=== PATIENT | female | born 1970 | race African-American/Black ===

== ENCOUNTER 2016-12-07 19:31 | Inpatient (IN) | payer OTHER ==
[2016-12-07 20:22] VITALS: BMI 22.6
--- NOTE | 2016-12-07 21:18 | HP ---
CIWA Score - CIWA Score Nausea/Vomitin-No Nausea/No Vomiting Muscle Tremors: 4-Moderate,w/Arms Extend Anxiety: 4-Mod. Anxious/Guarded Agitation: 3 Paroxysmal Sweats: No Perspiration Orientation: 0-Oriented Tacttile Disturbances: 0-None Auditory Disturbances: 0-None Visual Disturbances: 0-None Headache: 3-Moderate CIWA-Ar Total Score: 14 Admission [facility] - HPI Chief Complaint: Alcohol withdrawal symptoms Allergies/Adverse Reactions: Allergies Allergy/AdvReac Type Severity Reaction Status Date / Time No Known Allergies Allergy Verified 12/07/16 21:14 History of Present Illness: 46 years old female with history of alcohol, cocaine and marijuana dependence is admitted for detox. Patient has been in previous detox and reports 2 years of sobriety. Patient has medical history of diabetes, Hep C, nicotine dependence and Bipolar disorder. Reports history of suicide attempt at 16 years old and denies any suicidal ideation at this time Exam Limitations: No Limitations - Ebola screening Have you traveled outside of the country in the last 21 days: No Have you had contact with anyone from an Ebola affected area: No Have you been sick,other than usual withdrawal symptoms: No Do you have a fever: No - Review of Systems Constitutional: Chills, Loss of Appetite, Malaise, Night Sweats, Changes in sleep, Weakness EENT: reports: No Symptoms Reported Respiratory: reports: No Symptoms reported Cardiac: reports: No Symptoms Reported GI: reports: Poor Appetite, Poor Fluid Intake, Other (Dry mucous membrane) : reports: No Symptoms Reported Musculoskeletal: reports: Muscle Pain, Muscle Weakness Integumentary: reports: Dryness, Flushing, Pallor, Other (dry mucous membrane) Neuro: reports: Tingling, Tremors Endocrine: reports: Flushing, Increased Thirst, Increased Urine, Unexplained Weight Loss Hematology: reports: No Symptoms Reported Psychiatric: reports: Orientated x3, Anxious Other Systems: Reviewed and Negative Patient History - Patient Medical History Hx Anemia: No Hx Asthma: No Hx Chronic Obstructive Pulmonary Disease (COPD): No Hx Cancer: No Hx Cardiac Disorders: No Hx Congestive Heart Failure: No Hx Hypertension: No Hx Hypercholesterolemia: No HX Cerebrovascular Accident: No Hx Seizures: No Hx Diabetes: Yes (Lantus and metformin) Hx Gastrointestinal Disorders: No Hx Liver Disease: Yes (Hep C) Hx Genitourinary Disorders: No Hx Sexually Transmitted Disorders: No Hx Renal Disease (ESRD): No Hx Thyroid Disease: No Hx Human Immunodeficiency Virus (HIV): No (Negative 2016) Hx Hepatitis C: Yes Hx Depression: Yes Hx Suicide Attempt: Yes (at 16 years) Hx Bipolar Disorder: Yes Hx Schizophrenia: No - Patient Surgical History Past Surgical History: No - PPD History Previous Implant?: Yes ([facility]) Documented Results: Negative w/o proof PPD to be Administered?: Yes - Reproductive History Patient is a Female of Child Bearing Age (11 -55 yrs old): Yes LMP comment: LMP 2014, date unknown Patient : No - Smoking Cessation Smoking history: Current every day smoker Have you smoked in the past 12 months: Yes Aproximately how many cigarettes per day: 10 Hx Chewing Tobacco Use: No Initiated information on smoking cessation: Yes 'Breaking Loose' booklet given: 12/07/16 - Substance & Tx. History Hx Alcohol Use: Yes (Beer) Hx Substance Use: Yes (cocaine, marijuana) Substance Use Type: Alcohol, Cocaine, Marijuana Hx Substance Use Treatment: Yes ([facility] September 2016) - Substances Abused Alcohol Route: Oral Frequency: Daily Amount used: half pack of beer Age of first use: 13 Date of Last Use: 12/07/16 Cocaine Route: Smoking Frequency: 3-6 times per week Amount used: $20 Age of first use: 16 Date of Last Use: 12/06/16 Marijuana/Hashish Route: Smoking Frequency: 1-2 times per week Amount used: 1 joint Age of first use: 16 Date of Last Use: 12/05/16 Family Disease History - Family Disease History Family History: Denies Admission Physical Exam [facility] - Vital Signs Vital Signs: Vital Signs - 24 hr 12/07/16 20:17 Temperature 98.0 F Pulse Rate 84 Respiratory 18 Rate Blood Pressure 130/84 - Physical General Appearance: Yes: Within Normal Limits HEENTM: Yes: EOMI, Normal Voice, COOKIE Respiratory: Yes: Lungs Clear, Normal Breath Sounds, No Respiratory Distress Neck: Yes: Supple Breast: Yes: Breast Exam Deferred Cardiology: Yes: Regular Rhythm, Regular Rate, S1, S2 Abdominal: Yes: Normal Bowel Sounds, Soft Genitourinary: Yes: Within Normal Limits Back: Yes: Within Normal Limits Musculoskeletal: Yes: Within Normal Limits Extremities: Yes: Normal Inspection Neurological: Yes: Fully Oriented, Alert, Normal Response Integumentary: Yes: Dry Lymphatic: Yes: Within Normal Limits - Diagnostic (1) Alcohol dependence with uncomplicated withdrawal Current Visit: Yes Status: Acute (2) Cocaine dependence, uncomplicated Current Visit: Yes Status: Acute (3) Cannabis dependence, uncomplicated Current Visit: Yes Status: Acute (4) Diabetes Current Visit: Yes Status: Chronic (5) Hepatitis C Current Visit: Yes Status: Chronic Cleared for Admission [facility] - Detox or Rehab [facility] Level of Care: Medically Managed Detox Regimen/Protocol: Librium [facility] Breath Alcohol Content Breath Alcohol Content: 0.062 Urine Pregancy Test - Result Urine Test Results: Negative- NO Line Present Urine Drug Screen - Results Drug Screen Negative: No Urine Drug Screen Results: THC-Marijuana, SERA-Cocaine
[2016-12-07] MEDS ORDERED: ACETAMINOPHEN 325 MG TABLET (FP) PO PRN (21:41)
[2016-12-07] MEDS ORDERED: MENTHOL/PHENOL 1 EACH UD MM PRN (21:41)
[2016-12-07] MEDS ORDERED: chlordiazePOXIDE HCL 25 MG CAPSULE PO PRN (21:41)
[2016-12-07] MEDS ORDERED: hydrOXYzine PAMOATE 50 MG CAPSULE (FP) PO PRN (21:41)
[2016-12-07] MEDS ORDERED: LOPERAMIDE HCL 2 MG CAPSULE PO PRN (21:41)
[2016-12-07] MEDS ORDERED: P-EPHED 60MG/TRIPROLIDI 2.5MG TABLET PO PRN (21:41)
[2016-12-07] MEDS ORDERED: NICOTINE POLACRILEX 2 MG GUM BC PRN (21:41)
[2016-12-07] MEDS ORDERED: IBUPROFEN 400 MG TABLET (FP) PO PRN (21:41)
[2016-12-07] MEDS ORDERED: MAG HYDROX/AL HYDROX/SIMETH 30 ML UNIT-DOSE CUP PO PRN (21:41)
[2016-12-07] MEDS ORDERED: diphenhydrAMINE HCL 50 MG CAPSULE PO PRN (21:41)
[2016-12-07] MEDS ORDERED: MAGNESIUM HYDROX 2400MG/30ML ORAL SUSPENSION 30 ML CUP PO PRN (21:41)
[2016-12-07] MEDS ORDERED: MAGNESIUM CITRATE 300 ML BOTTLE PO PRN (21:41)
[2016-12-07] MEDS ORDERED: guaiFENesin/D-METHORPHAN HB 10 ML UNIT-DOSE CUPS PO PRN (21:41)
[2016-12-07] MEDS: chlordiazePOXIDE HCL 25 MG CAPSULE PO SCH (22:54)
[2016-12-07] MEDS: INSULIN DETEMIR 100 UNITS/ML MDV SQ SCH (22:55)
[2016-12-07] MEDS: THIAMINE HCL 100 MG TABLET (FP) PO SCH (23:00)
[2016-12-08] MEDS: chlordiazePOXIDE HCL 25 MG CAPSULE PO SCH ×4 (05:14→22:09)
[2016-12-08] MEDS: metFORMIN HCL 500 MG TABLET (FP) PO SCH ×3 (08:04→17:19)
--- NOTE | 2016-12-08 08:58 | PN ---
S CIWA - CIWA Score Nausea/Vomitin Muscle Tremors: 3 Anxiety: 3 Agitation: 3 Paroxysmal Sweats: 1-Minimal Palms Moist Orientation: 0-Oriented Tacttile Disturbances: 1-Very Mild Itch/Numbness Auditory Disturbances: 1-Very Mild Visual Disturbances: 0-None Headache: 2-Mild CIWA-Ar Total Score: 17 BHS Progress Note (SOAP) Subjective: ALERT,IRRITABLE,ANXIOUS,INTERRUPTED SLEEP,TREMOR Objective: 12/08/16 09:05 Vital Signs Temperature 97.9 F 12/08/16 06:00 Pulse Rate 71 12/08/16 06:00 Respiratory Rate 16 12/08/16 06:00 Blood Pressure 135/58 12/08/16 06:00 O2 Sat by Pulse Oximetry (%) EKG NSR,INVERTED T IN 1 AND AVL,VIV2 NO CHEST PAIN,NO SOB,NO DIZZINESS Laboratory Last Values POC Glucometer 272 UNITS (()) 12/08/16 05:13 12/08/16 09:07 LABS PENDING Assessment: 12/08/16 09:07 WITHDRAWAL SYMPTOM Plan: CONTINUE DETOX
[2016-12-08 10:01] LABS: MCH 29.3 pg (25.7-33.7); MCHC 32.6 g/dl (32.0-36.0); MEAN PLT VOLUME 8.7 fl (7.5-11.1); PLATELET COUNT 426 K/MM3 (134-434); RDW 13.9 % (11.6-15.6)
[2016-12-08 10:07] LABS: ALBUMIN 2.8 g/dl (3.4-5.0); ANION GAP 8 (8-16); CALCIUM 9.1 mg/dL (8.5-10.1); CO2 28 mmol/L (21-32); GLUCOSE,RANDOM 230 mg/dL (74-106)
[2016-12-08 10:11] LABS: ALK PHOS 102 U/L (45-117); BILIRUBIN,TOTAL 0.7 mg/dL (0.2-1.0); CREATININE 0.7 mg/dL (0.55-1.02); SGOT/AST 125 U/L (15-37); SGPT/ALT 97 U/L (12-78); TOT PROT 6.3 g/dl (6.4-8.2)
[2016-12-08] MEDS: PRENATAL VITAMINS W/ FOLIC ACID TABLET (FP) PO SCH (11:00)
--- NOTE | 2016-12-08 15:39 | CONSULT ---
[facility] Psychiatric Consult - Data Date of interview: 12/08/16 Admission source: [facility] Identifying data: First admission to [facility] for this 46 y/o AA female seeking detox treatment on for alcohol,cocaine (crack) and cannabis dependence.Patient is without children,domiciled,unemployed and supported by . Substance Abuse History: Patient admits to a long history of abuse of cannabis, alcohol and crack/cocaine. Smoking history: Current every day smoker. Have you smoked in the past 12 months: Yes. Aproximately how many cigarettes per day : 10. Hx Chewing Tobacco Use: No. Initiated information on smoking cessation: Yes. 'Breaking Loose' booklet given: 12/07/16. - Substance & Tx. History. Hx Alcohol Use: Yes (Beer). Hx Substance Use: Yes (cocaine, marijuana). Substance Use Type: Alcohol, Cocaine, Marijuana. Hx Substance Use Treatment: Yes ([facility] September 2016). - Substances Abused. Alcohol. Route: Oral. Frequency: Daily. Amount used: half pack of beer. Age of first use: 13. Date of Last Use: 12/07/16. Cocaine. Route: Smoking. Frequency: 3-6 times per week. Amount used: $20. Age of first use: 16. Date of Last Use: 12/06/16. * * Marijuana/Hashish. Route: Smoking. Frequency: 1-2 times per week. Amount used: 1 joint. Age of first use: 16. Date of Last Use: 12/05/16 Medical History: Hepatitis C and diabetes mellitus. Psychiatric History: No reported history of psychiatric hospitalizations.Patient informs that she gets psychiatric OPD care at the [facility] mental health clinic.Diagnosed with Bipolar Disorder.Prescribed seroquel 100 mg/hs + trazodone 50 mg/hs.Remote history of suicide attempts (age 16) via overdose with medications. Physical/Sexual Abuse/Trauma History: Patient denies. Additional Comment: Urine Drug Screen Results: THC-Marijuana, SERA-Cocaine.Noted. Mental Status Exam - Mental Status Exam Alert and Oriented to: Time, Place, Person Cognitive Function: Good Patient Appearance: Well Groomed (small stature and medium habitus) Mood: Nervous, Withdrawn Affect: Mood Congruent Patient Behavior: Appropriate, Cooperative Speech Pattern: Clear Voice Loudness: Normal Thought Process: Goal Oriented Thought Disorder: Not Present Hallucinations: Denies Suicidal Ideation: Denies Homicidal Ideation: Denies Insight/Judgement: Poor Sleep: Fair Appetite: Good Muscle strength/Tone: Normal Gait/Station: Normal Psychiatric Findings - Problem List ([place] 1, 2,3) (1) Alcohol dependence with uncomplicated withdrawal Current Visit: Yes Status: Acute (2) Cannabis dependence, uncomplicated Current Visit: Yes Status: Acute (3) Cocaine dependence, uncomplicated Current Visit: Yes Status: Acute (4) Nicotine dependence Current Visit: Yes Status: Acute (5) Bipolar disorder Current Visit: Yes Status: Chronic Qualifiers: Active/Remission status: currently active Comment: Self-report. (6) Substance induced mood disorder Current Visit: Yes Status: Acute (7) Diabetes Current Visit: Yes Status: Chronic (8) Hepatitis C Current Visit: Yes Status: Chronic - Initial Treatment Plan Initial Treatment Plan: Psychoeducation.Detoxification.Medications : seroquel 100 mg po hs.Side effects/benefits are discussed with the patient.She agrees with [facility]Pharmacy claims of 11/25/16 at [place] [facility] # [phone] : refill for seroquel 200 mg/hs (30-day supply).NO scripts required at discharge (medication still available at home).Observation.No evidence of recent script for trazodone.
[2016-12-08] MEDS: INSULIN SLIDING SCALE (NOVOLOG) 1 VIAL SQ SCH (22:03)
[2016-12-08] MEDS ORDERED: INSULIN (NOVOLOG) ASPART 100 UNITS/ML 10ML VIAL ONE (22:08)
[2016-12-08] MEDS: QUEtiapine FUMARATE 100 MG TABLET (FP) PO SCH (22:09)
[2016-12-08] MEDS: INSULIN DETEMIR 100 UNITS/ML MDV SQ SCH (22:09)
[2016-12-08] MEDS: THIAMINE HCL 100 MG TABLET (FP) PO SCH (22:10)
[2016-12-09] MEDS: chlordiazePOXIDE HCL 25 MG CAPSULE PO SCH ×3 (06:23→16:59)
[2016-12-09] MEDS: metFORMIN HCL 500 MG TABLET (FP) PO SCH ×2 (06:24→16:59)
[2016-12-09] MEDS ORDERED: INSULIN (NOVOLOG) ASPART 100 UNITS/ML 10ML VIAL ONE ×2 (06:27→11:34)
[2016-12-09] MEDS: INSULIN SLIDING SCALE (NOVOLOG) 1 VIAL SQ SCH ×4 (07:42→23:06)
--- NOTE | 2016-12-09 09:55 | PN ---
S CIWA - CIWA Score Nausea/Vomitin Muscle Tremors: 4-Moderate,w/Arms Extend Anxiety: 4-Mod. Anxious/Guarded Agitation: 4-Moderately Restless Paroxysmal Sweats: 1-Minimal Palms Moist Orientation: 0-Oriented Tacttile Disturbances: 1-Very Mild Itch/Numbness Auditory Disturbances: 0-None Visual Disturbances: 0-None Headache: 1-Very Mild CIWA-Ar Total Score: 18 BHS Progress Note (SOAP) Subjective: nausea, sweats, interrupted sleep, anxiety, tremors Objective: 12/09/16 09:54 Vital Signs - 8 hr 12/09/16 12/09/16 12/09/16 03:30 06:00 09:07 Temperature 96.6 F L 97.6 F Pulse Rate 69 78 Respiratory 18 18 18 Rate Blood Pressure 129/71 136/63 Laboratory Tests 12/08/16 12/08/16 12/08/16 05:13 07:00 07:00 WBC 7.0 RBC 4.38 Hgb 12.8 Hct 39.4 MCV 90.0 MCH 29.3 MCHC 32.6 RDW 13.9 Plt Count 426 MPV 8.7 Sodium 140 Potassium 4.3 Chloride 104 Carbon Dioxide 28 Anion Gap 8 BUN 11 Creatinine 0.7 Creat Clearance w eGFR > 60 POC Glucometer 272 Random Glucose 230 H Calcium 9.1 Total Bilirubin 0.7 AST 125 H ALT 97 H Alkaline Phosphatase 102 Total Protein 6.3 L Albumin 2.8 L RPR Titer 12/08/16 12/08/16 12/08/16 07:00 16:25 22:02 WBC RBC Hgb Hct MCV MCH MCHC RDW Plt Count MPV Sodium Potassium Chloride Carbon Dioxide Anion Gap BUN Creatinine Creat Clearance w eGFR POC Glucometer 333 294 Random Glucose Calcium Total Bilirubin AST ALT Alkaline Phosphatase Total Protein Albumin RPR Titer Nonreactive 12/09/16 06:12 WBC RBC Hgb Hct MCV MCH MCHC RDW Plt Count MPV Sodium Potassium Chloride Carbon Dioxide Anion Gap BUN Creatinine Creat Clearance w eGFR POC Glucometer 261 Random Glucose Calcium Total Bilirubin AST ALT Alkaline Phosphatase Total Protein Albumin RPR Titer Assessment: 12/09/16 09:54 hypoalbuminemia/malnutrition 2/2 substance use liver disease, withdrawal sx Plan: cont detox, fluids, ensure plus
[2016-12-09] MEDS: PRENATAL VITAMINS W/ FOLIC ACID TABLET (FP) PO SCH (10:40)
--- NOTE | 2016-12-09 12:49 | EKG ---
Test Reason : Blood Pressure : / mmHG Vent. Rate : 077 BPM Atrial Rate : 077 BPM P-R Int : 148 ms QRS Dur : 082 ms QT Int : 414 ms P-R-T Axes : 063 087 077 degrees QTc Int : 468 ms NORMAL SINUS RHYTHM POSSIBLE ANTERIOR INFARCT , AGE UNDETERMINED ABNORMAL ECG NO PREVIOUS ECGS AVAILABLE Confirmed by ALFREDO PINEDO MD ([id number]) on 12/09/2016 12:49:17 PM Referred By: Confirmed By:ALFREDO PINEDO MD
[2016-12-09 16:05] LABS: URINE APPEARANCE SLCLOUDY; URINE BILIRUBIN NEGATIVE (NEGATIVE); URINE BLOOD NEGATIVE (NEGATIVE); URINE COLOR YELLOW; URINE GLUCOSE (UA) NEGATIVE (NEGATIVE); URINE KETONE NEGATIVE (NEGATIVE); URINE NITRITE NEGATIVE (NEGATIVE); URINE PROTEIN NEGATIVE (NEGATIVE); URINE UROBILINOGEN NEGATIVE mg/dL (0.2-1.0)
[2016-12-09 18:08] LABS: URINE LEUK ESTERASE Negative (NEGATIVE)
[2016-12-09] MEDS: chlordiazePOXIDE 5 MG CAPSULE PO SCH (22:44)
[2016-12-09] MEDS: QUEtiapine FUMARATE 100 MG TABLET (FP) PO SCH (22:44)
[2016-12-09] MEDS: THIAMINE HCL 100 MG TABLET (FP) PO SCH (22:44)
[2016-12-09] MEDS: INSULIN DETEMIR 100 UNITS/ML MDV SQ SCH (23:05)
[2016-12-10] MEDS: chlordiazePOXIDE 5 MG CAPSULE PO SCH ×3 (06:22→11:16)
[2016-12-10 06:33] VITALS: BP 126/68; PULSE 66; TEMP 96.1
[2016-12-10] MEDS: metFORMIN HCL 500 MG TABLET (FP) PO SCH (06:34)
[2016-12-10] MEDS ORDERED: INSULIN (NOVOLOG) ASPART 100 UNITS/ML 10ML VIAL ONE (08:02)
[2016-12-10] MEDS: INSULIN SLIDING SCALE (NOVOLOG) 1 VIAL SQ SCH ×2 (08:18→11:40)
--- NOTE | 2016-12-10 09:40 | PN ---
S Progress Note (SOAP) Subjective: alert,irritable,anxious,interrupted sleep, Objective: 12/10/16 09:38 Vital Signs Temperature 96.1 F L 12/10/16 06:32 Pulse Rate 66 12/10/16 06:32 Respiratory Rate 16 12/10/16 06:32 Blood Pressure 126/68 12/10/16 06:32 O2 Sat by Pulse Oximetry (%) 12/10/16 09:39 Laboratory Last Values WBC 7.0 K/mm3 (4.0-10.0) 12/08/16 07:00 RBC 4.38 M/mm3 (3.60-5.2) 12/08/16 07:00 Hgb 12.8 GM/dL (10.7-15.3) 12/08/16 07:00 Hct 39.4 % (32.4-45.2) 12/08/16 07:00 MCV 90.0 fl (80-96) 12/08/16 07:00 MCH 29.3 pg (25.7-33.7) 12/08/16 07:00 MCHC 32.6 g/dl (32.0-36.0) 12/08/16 07:00 RDW 13.9 % (11.6-15.6) 12/08/16 07:00 Plt Count 426 K/MM3 (134-434) 12/08/16 07:00 MPV 8.7 fl (7.5-11.1) 12/08/16 07:00 Sodium 140 mmol/L (136-145) 12/08/16 07:00 Potassium 4.3 mmol/L (3.5-5.1) 12/08/16 07:00 Chloride 104 mmol/L (98-107) 12/08/16 07:00 Carbon Dioxide 28 mmol/L (21-32) 12/08/16 07:00 Anion Gap 8 (8-16) 12/08/16 07:00 BUN 11 mg/dL (7-18) 12/08/16 07:00 Creatinine 0.7 mg/dL (0.55-1.02) 12/08/16 07:00 Creat Clearance w eGFR > 60 (>60) 12/08/16 07:00 POC Glucometer 326 UNITS (()) 12/10/16 06:30 Random Glucose 230 mg/dL (74-106) H 12/08/16 07:00 Calcium 9.1 mg/dL (8.5-10.1) 12/08/16 07:00 Total Bilirubin 0.7 mg/dL (0.2-1.0) 12/08/16 07:00 AST 125 U/L (15-37) H 12/08/16 07:00 ALT 97 U/L (12-78) H 12/08/16 07:00 Alkaline Phosphatase 102 U/L (45-117) 12/08/16 07:00 Total Protein 6.3 g/dl (6.4-8.2) L 12/08/16 07:00 Albumin 2.8 g/dl (3.4-5.0) L 12/08/16 07:00 Urine Color Yellow 12/09/16 12:30 Urine Appearance Slcloudy 12/09/16 12:30 Urine pH 7.0 (5.0-8.0) 12/09/16 12:30 Ur Specific [place] 1.015 (1.001-1.035) 12/09/16 12:30 Urine Protein Negative (NEGATIVE) 12/09/16 12:30 Urine Glucose (UA) Negative (NEGATIVE) 12/09/16 12:30 Urine Ketones Negative (NEGATIVE) 12/09/16 12:30 Urine Blood Negative (NEGATIVE) 12/09/16 12:30 Urine Nitrite Negative (NEGATIVE) 12/09/16 12:30 Urine Bilirubin Negative (NEGATIVE) 12/09/16 12:30 Urine Urobilinogen Negative mg/dL (0.2-1.0) 12/09/16 12:30 Ur Leukocyte Esterase Negative (NEGATIVE) 12/09/16 12:30 RPR Titer Nonreactive (NONREACTIVE) 12/08/16 07:00 Assessment: 12/10/16 09:38 withdrawal symptom 12/10/16 09:39 Plan: continue detox,bgm monitoring,insulin coverage and metformin 1000 mg po bid
[2016-12-10] MEDS: PRENATAL VITAMINS W/ FOLIC ACID TABLET (FP) PO SCH (10:53)
--- NOTE | 2016-12-10 12:18 | PN ---
BHS Progress Note Note: ALERT,NO COMPLAINT,STABLE FOR DISCHARGE TO REHAB
--- NOTE | 2016-12-10 12:22 | DS ---
[facility] Detox Discharge Summary Admission Date: 12/07/16 Discharge Date: 12/10/16 - History Present History: Alcohol Dependence, Cannabis Dependence, Cocaine Dependence Additional Comments: FOLLOW UP WITH AFTER CARE PROGRAM [facility] APPOINTMENT Pertinent Past History: HYPERTENSION TYPE 2 DM - Physical Exam Results Vital Signs: Vital Signs Temperature 96.1 F L 12/10/16 06:32 Pulse Rate 66 12/10/16 06:32 Respiratory Rate 16 12/10/16 06:32 Blood Pressure 126/68 12/10/16 06:32 O2 Sat by Pulse Oximetry (%) Pertinent Admission Physical Exam Findings: WITHDRAWAL SYMPTOM - Treatment Hospital Course: Detox Protocol Followed, Detoxed Safely, Responded well, Discharged Condition Good, Rehab Referral Accepted Patient has Accepted a Rehab Referral to: [facility] - Medication Discharge Medications: Ambulatory Orders Insulin Glargine,Hum.rec.anlog [Lantus Solostar PEN (NF)] 24 units SQ HS Insulin Lispro [Humalog] 10 unit SQ DAILY 12/07/16 Metformin HCl [Glucophage -] 500 mg PO BID 12/07/16 - Diagnosis (1) Alcohol dependence with uncomplicated withdrawal Current Visit: Yes Status: Acute (2) Cannabis dependence, uncomplicated Current Visit: Yes Status: Acute (3) Cocaine dependence, uncomplicated Current Visit: Yes Status: Acute (4) Nicotine dependence Current Visit: Yes Status: Acute (5) Substance induced mood disorder Current Visit: Yes Status: Acute (6) Bipolar disorder Current Visit: Yes Status: Chronic Qualifiers: Active/Remission status: currently active (7) Diabetes Current Visit: Yes Status: Chronic (8) Hepatitis C Current Visit: Yes Status: Chronic - AMA Did Patient Leave Against Medical Advice: No
[2016-12-10] MEDS ORDERED: chlordiazePOXIDE HCL 10 MG CAPSULE PO SCH (23:00)
== END 2016-12-10 13:47 | disposition other institution (70) | DRG 774 ==
LOC: YASAS 19:31 → Y6N 22:22
PROVIDERS: ADMIT Internal Medicine; ATTEND Internal Medicine
PROC: HZ2ZZZZ Detoxification Services for Substance Abuse Treatment (ICD-10-PCS; principal; 2016-12-07)
DX: F10.230 Alcohol dependence with withdrawal, uncomplicated (principal); F14.20 Cocaine dependence, uncomplicated; F12.220 Cannabis dependence with intoxication, uncomplicated; F17.210 Nicotine dependence, cigarettes, uncomplicated; F19.24 Other psychoactive substance dependence with psychoactive substance-induced mood disorder; F31.9 Bipolar disorder, unspecified; B18.2 Chronic viral hepatitis C; E11.9 Type 2 diabetes mellitus without complications; Z79.4 Long term (current) use of insulin; Z79.84 Long term (current) use of oral hypoglycemic drugs; Z91.5 Personal history of self-harm
CPT/HCPCS: 36415; 80053; 81003; 85027; 86593; 93005; 93010

== ENCOUNTER 2016-12-10 14:27 | Inpatient (IN) | payer OTHER ==
[2016-12-10] MEDS ORDERED: MAGNESIUM HYDROX 2400MG/30ML ORAL SUSPENSION 30 ML CUP PO PRN (15:15)
[2016-12-10] MEDS ORDERED: ACETAMINOPHEN 325 MG TABLET (FP) PO PRN (15:15)
[2016-12-10] MEDS ORDERED: IBUPROFEN 400 MG TABLET (FP) PO PRN (15:15)
[2016-12-10] MEDS ORDERED: guaiFENesin/D-METHORPHAN HB 10 ML UNIT-DOSE CUPS PO PRN (15:15)
[2016-12-10] MEDS ORDERED: MAGNESIUM CITRATE 300 ML BOTTLE PO PRN (15:15)
[2016-12-10] MEDS ORDERED: MENTHOL/PHENOL 1 EACH UD MM PRN (15:15)
[2016-12-10] MEDS ORDERED: LOPERAMIDE HCL 2 MG CAPSULE PO PRN (15:15)
[2016-12-10] MEDS ORDERED: P-EPHED 60MG/TRIPROLIDI 2.5MG TABLET PO PRN (15:15)
[2016-12-10] MEDS ORDERED: MAG HYDROX/AL HYDROX/SIMETH 30 ML UNIT-DOSE CUP PO PRN (15:15)
[2016-12-10] MEDS: NICOTINE 21 MG/24 HOURS TOPICAL PATCH TD SCH (15:43)
[2016-12-10] MEDS: metFORMIN HCL 500 MG TABLET (FP) PO SCH (16:42)
--- NOTE | 2016-12-10 16:42 | HP ---
[facility] Rehab Assess/Revision - Admission History Admitted to Rehab from: [facility] [address] [place] Date of Admission to Rehab: 12/10/16 - Vital signs Vital Signs: Vital Signs Period Temp Pulse Resp BP Sys/Mata Pulse Ox Last 24 Hr 97 F 79 16 111/76 - Findings Detox History & Physical reviewed: Yes Concur with findings: Yes Comments/Additional Findings: TRANSFERRED FROM DETOX TO REHAB ADMISSION PER PROTOCOL
--- NOTE | 2016-12-10 16:43 | HP ---
Admission [facility] Allergies/Adverse Reactions: Allergies Allergy/AdvReac Type Severity Reaction Status Date / Time No Known Allergies Allergy Verified 12/07/16 21:14 - Ebola screening Have you traveled outside of the country in the last 21 days: No Have you had contact with anyone from an Ebola affected area: No Patient History - Patient Medical History Hx Anemia: No Hx Asthma: No Hx Chronic Obstructive Pulmonary Disease (COPD): No Hx Cancer: No Hx Cardiac Disorders: No Hx Congestive Heart Failure: No Hx Hypertension: No Hx Hypercholesterolemia: No HX Cerebrovascular Accident: No Hx Seizures: No Hx Diabetes: Yes Hx Gastrointestinal Disorders: No Hx Liver Disease: Yes (Hep C) Hx Genitourinary Disorders: No Hx Sexually Transmitted Disorders: No Hx Renal Disease (ESRD): No Hx Thyroid Disease: No Hx Human Immunodeficiency Virus (HIV): No (Negative 2017) Hx Hepatitis C: Yes Hx Depression: Yes Hx Suicide Attempt: No Hx Bipolar Disorder: Yes Hx Schizophrenia: No - Patient Surgical History Past Surgical History: No Hx Neurologic Surgery: No Hx Cataract Extraction: No Hx Cardiac Surgery: No Hx Lung Surgery: No Hx Breast Surgery: No Hx Breast Biopsy: No Hx Abdominal Surgery: No Hx Appendectomy: No Hx Cholecystectomy: No Hx Genitourinary Surgery: No Hx Section: No Hx Orthopedic Surgery: No Anesthesia Reaction: No - PPD History Previous Implant?: Yes Documented Results: Negative w/proof Implanted On Prior [facility] Admission?: Yes Date: 12/09/16 Results: 0mm - Reproductive History Last Menstrual Period: 07/07/14 Patient : No - Smoking Cessation Smoking history: Current every day smoker Have you smoked in the past 12 months: Yes Aproximately how many cigarettes per day: 10 Hx Chewing Tobacco Use: No Initiated information on smoking cessation: Yes 'Breaking Loose' booklet given: 12/10/16 - Substances Abused Alcohol Route: Oral Frequency: Daily Amount used: 6 pack beers Age of first use: 13 Date of Last Use: 12/07/16 Cocaine Route: Smoking Frequency: 3-6 times per week Amount used: $20 Age of first use: 16 Date of Last Use: 12/06/16 Marijuana/Hashish Route: Smoking Frequency: 1-2 times per week Amount used: 1 joint Age of first use: 16 Date of Last Use: 12/05/16 Admission Physical Exam S - Vital Signs Vital Signs: Vital Signs - 24 hr 12/10/16 14:43 Temperature 97 F L Pulse Rate 79 Respiratory 16 Rate Blood Pressure 111/76 BHS Breath Alcohol Content Breath Alcohol Content: 0.062 Inpatient Rehab Admission - Initial Determination Are CD services needed?: Yes Free of communicable disease: Yes Not in need of hospitalization: Yes - Rehab Admission Criteria Previous failed treatment: Yes Poor recovery environment: Yes Comorbidities: Yes Lacks judgement: No Patient is meeting Inpatient Rehab admission criteria:: Yes
[2016-12-10] MEDS: THIAMINE HCL 100 MG TABLET (FP) PO SCH (21:38)
[2016-12-10] MEDS: QUEtiapine FUMARATE 100 MG TABLET (FP) PO SCH (21:38)
[2016-12-10] MEDS: INSULIN DETEMIR 100 UNITS/ML MDV SQ SCH (21:41)
[2016-12-11] MEDS: metFORMIN HCL 500 MG TABLET (FP) PO SCH ×2 (06:33→17:51)
[2016-12-11] MEDS: NICOTINE 21 MG/24 HOURS TOPICAL PATCH TD SCH (10:27)
[2016-12-11] MEDS: PRENATAL VITAMINS W/ FOLIC ACID TABLET (FP) PO SCH (10:27)
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
[2016-12-11] MEDS: traZODone HCL 50 MG TABLET (FP) PO SCH (21:14)
[2016-12-11] MEDS: QUEtiapine FUMARATE 100 MG TABLET (FP) PO SCH (21:14)
[2016-12-11] MEDS: INSULIN DETEMIR 100 UNITS/ML MDV SQ SCH (22:03)
[2016-12-11] MEDS: THIAMINE HCL 100 MG TABLET (FP) PO SCH (22:03)
[2016-12-12] MEDS: metFORMIN HCL 500 MG TABLET (FP) PO SCH ×2 (06:34→17:05)
[2016-12-12] MEDS: NICOTINE 21 MG/24 HOURS TOPICAL PATCH TD SCH (09:39)
[2016-12-12] MEDS: PRENATAL VITAMINS W/ FOLIC ACID TABLET (FP) PO SCH (09:40)
[2016-12-12] MEDS: traZODone HCL 50 MG TABLET (FP) PO SCH (21:31)
[2016-12-12] MEDS: THIAMINE HCL 100 MG TABLET (FP) PO SCH (21:31)
[2016-12-12] MEDS: QUEtiapine FUMARATE 100 MG TABLET (FP) PO SCH (21:31)
[2016-12-12] MEDS: INSULIN DETEMIR 100 UNITS/ML MDV SQ SCH (21:33)
[2016-12-12] MEDS: INSULIN SLIDING SCALE (NOVOLOG) 1 VIAL SQ SCH (21:48)
[2016-12-12] MEDS ORDERED: INSULIN (NOVOLOG) ASPART 100 UNITS/ML 10ML VIAL SQ SCH (22:00)
[2016-12-12] MEDS ORDERED: INSULIN (NOVOLOG) ASPART 100 UNITS/ML 10ML VIAL ONE (22:33)
[2016-12-13] MEDS: metFORMIN HCL 500 MG TABLET (FP) PO SCH ×2 (06:41→17:01)
[2016-12-13] MEDS: INSULIN SLIDING SCALE (NOVOLOG) 1 VIAL SQ SCH ×4 (06:41→21:26)
[2016-12-13] MEDS ORDERED: INSULIN (NOVOLOG) ASPART 100 UNITS/ML 10ML VIAL ONE ×3 (07:01→16:25)
[2016-12-13] MEDS: NICOTINE 21 MG/24 HOURS TOPICAL PATCH TD SCH (09:04)
[2016-12-13] MEDS: PRENATAL VITAMINS W/ FOLIC ACID TABLET (FP) PO SCH (09:05)
[2016-12-13] MEDS: traZODone HCL 50 MG TABLET (FP) PO SCH (21:22)
[2016-12-13] MEDS: QUEtiapine FUMARATE 100 MG TABLET (FP) PO SCH (21:22)
[2016-12-13] MEDS: THIAMINE HCL 100 MG TABLET (FP) PO SCH (21:22)
[2016-12-13] MEDS: INSULIN DETEMIR 100 UNITS/ML MDV SQ SCH (21:24)
[2016-12-14] MEDS: metFORMIN HCL 500 MG TABLET (FP) PO SCH ×2 (07:16→17:12)
[2016-12-14] MEDS: INSULIN SLIDING SCALE (NOVOLOG) 1 VIAL SQ SCH ×4 (07:16→21:32)
[2016-12-14] MEDS: NICOTINE 21 MG/24 HOURS TOPICAL PATCH TD SCH (10:15)
[2016-12-14] MEDS: PRENATAL VITAMINS W/ FOLIC ACID TABLET (FP) PO SCH (10:15)
[2016-12-14] MEDS ORDERED: INSULIN (NOVOLOG) ASPART 100 UNITS/ML 10ML VIAL ONE ×2 (12:02→17:04)
[2016-12-14] MEDS: THIAMINE HCL 100 MG TABLET (FP) PO SCH (21:32)
[2016-12-14] MEDS: INSULIN DETEMIR 100 UNITS/ML MDV SQ SCH (21:32)
[2016-12-14] MEDS: QUEtiapine FUMARATE 100 MG TABLET (FP) PO SCH (21:32)
[2016-12-14] MEDS: traZODone HCL 50 MG TABLET (FP) PO SCH (21:32)
[2016-12-15] MEDS: metFORMIN HCL 500 MG TABLET (FP) PO SCH ×2 (06:59→16:53)
[2016-12-15] MEDS ORDERED: INSULIN (NOVOLOG) ASPART 100 UNITS/ML 10ML VIAL ONE ×3 (07:00→16:40)
[2016-12-15] MEDS: INSULIN SLIDING SCALE (NOVOLOG) 1 VIAL SQ SCH ×4 (07:01→21:31)
[2016-12-15] MEDS: NICOTINE 21 MG/24 HOURS TOPICAL PATCH TD SCH (09:46)
[2016-12-15] MEDS: PRENATAL VITAMINS W/ FOLIC ACID TABLET (FP) PO SCH (09:46)
[2016-12-15] MEDS: traZODone HCL 50 MG TABLET (FP) PO SCH (21:29)
[2016-12-15] MEDS: THIAMINE HCL 100 MG TABLET (FP) PO SCH (21:29)
[2016-12-15] MEDS: QUEtiapine FUMARATE 100 MG TABLET (FP) PO SCH (21:29)
[2016-12-15] MEDS: INSULIN DETEMIR 100 UNITS/ML MDV SQ SCH (21:32)
[2016-12-16] MEDS ORDERED: INSULIN (NOVOLOG) ASPART 100 UNITS/ML 10ML VIAL ONE ×4 (07:19→21:05)
[2016-12-16] MEDS: metFORMIN HCL 500 MG TABLET (FP) PO SCH ×2 (07:39→16:59)
[2016-12-16] MEDS: INSULIN SLIDING SCALE (NOVOLOG) 1 VIAL SQ SCH ×4 (07:40→21:37)
[2016-12-16] MEDS: PRENATAL VITAMINS W/ FOLIC ACID TABLET (FP) PO SCH (10:34)
[2016-12-16] MEDS: NICOTINE 21 MG/24 HOURS TOPICAL PATCH TD SCH (10:35)
[2016-12-16] MEDS: QUEtiapine FUMARATE 100 MG TABLET (FP) PO SCH (21:36)
[2016-12-16] MEDS: traZODone HCL 50 MG TABLET (FP) PO SCH (21:36)
[2016-12-16] MEDS: THIAMINE HCL 100 MG TABLET (FP) PO SCH (21:36)
[2016-12-16] MEDS: INSULIN DETEMIR 100 UNITS/ML MDV SQ SCH (21:38)
[2016-12-17] MEDS: INSULIN SLIDING SCALE (NOVOLOG) 1 VIAL SQ SCH ×4 (06:48→21:42)
[2016-12-17] MEDS: metFORMIN HCL 500 MG TABLET (FP) PO SCH ×2 (06:48→17:05)
[2016-12-17] MEDS ORDERED: INSULIN (NOVOLOG) ASPART 100 UNITS/ML 10ML VIAL ONE ×2 (07:13→17:09)
[2016-12-17] MEDS: PRENATAL VITAMINS W/ FOLIC ACID TABLET (FP) PO SCH (10:26)
[2016-12-17] MEDS: NICOTINE 21 MG/24 HOURS TOPICAL PATCH TD SCH (10:26)
--- NOTE | 2016-12-17 13:51 | OP ---
DATE OF OPERATION: 12/17/2016 SURGEON: Brown Pete MD [facility] [employer] SURGEON: Melodie Merida PA-C PREOPERATIVE DIAGNOSES: 1. Bilateral acquired chest wall deformity, status post bilateral mastectomy. 2. Asymmetry of reconstructed chest wall. 3. Mechanical complication of breast implant. POSTOPERATIVE DIAGNOSES: 1. Bilateral acquired chest wall deformity, status post bilateral mastectomy. 2. Asymmetry of reconstructed chest wall. 3. Mechanical complication of breast implant. OPERATIVE PROCEDURES: 1. Right breast reconstruction, utilizing other technique. 2. Left breast reconstruction, utilizing other technique. 3. Right breast capsulotomy, removal of right breast implant and replacement. 4. Left breast capsulectomy, removal and replacement of left breast implant for reconstruction. OPERATIVE INDICATION: The patient is a young woman who underwent previous bilateral mastectomy for breast cancer history. The risks and benefits, surgical versus nonsurgical alternatives, as well as complications of this procedure were described to the patient on multiple occasions preoperatively. She agreed to the planned procedure. The patient was marked in the standing position preoperatively for outline of the procedure, and indicated incisions, and correction of the mastectomy scars. OPERATIVE PROCEDURE IN DETAIL: The patient was taken to the operating room, and after induction of general anesthesia in supine position, both arms were extended and padded. Venodyne boots were placed. Attention was turned to the prepping and draping. At this point, after prepping and draping was accomplished, timeout was accomplished. Intravenous antibiotics were infiltrated into the patient intravenously. At this point, attention was turned to the mastectomy scars. These were injected with 1% local lidocaine anesthesia with 1:100,000 epinephrine, as was an area in the lower abdomen for harvest of reconstructive tissue. Attention was then first turned to the right breast. After topical anesthesia and hemostasis was achieved, an incision was made down through the skin to subcutaneous tissue on the right breast through the mastectomy scar, down through the subcutaneous tissue to the underlying capsule. I then performed a capsulotomy, by incising the capsule along the course of the incision on the right breast, down to the underlying implant. This implant was removed and sent for pathologic diagnosis. Copious irrigation with triple-antibiotic solution was carried out over the pocket itself. Then, the pocket was modified by using the contraction technique. The lateral gutter and lateral portion of the breast was contracted to accept a new implant and correct the deformity in the implant and capsule itself. Attention was then turned to the abdominal area. An incision was then made in the planned area on the lower abdominal incision from the hip margin all the way across the midline to the other side, from right to left, and subcutaneous tissue was then raised and harvested for reconstructive purposes. This tissue was transferred to the back table, washed, cleansed, and prepared for reconstructive purposes. Attention turned back to the left breast. At this point, an incision was made down through the mastectomy scar on the left side, through the subcutaneous tissue, down to the underlying capsule. A capsulotomy was then performed on the lower portion of the implant pocket and nodules were seen along the inferior border of the inframammary fold area. A capsulectomy was then performed, excising a portion of the capsule in the lower pole in the midline and left lower quadrant. This tissue was sent for pathologic diagnosis to rule out breast cancer, but appeared to be benign in nature. Copious irrigation of the wound was performed. The same procedure with contraction technique was carried out in the pocket, and then implants were chosen for the patient. The Sientra style 107, a 565-cc implant was placed into the right breast pocket which showed good shape and contour. The exact, same procedure was carried out symmetrically on the left breast. Tissue was then transferred from the back table into the right breast for reconstructive purposes in the superior, medial, central, and lateral portions of the right breast, and then independently on the left breast in the superior, inferior, central, lateral and superior portions of the left breast. Good symmetry was then seen in the sitting position and closure was accomplished. Using 3-0 PDS suture in a running fashion, the capsule and pocket was advanced and closed upon itself, covering the implant, after copious irrigation with triple-antibiotic solution and hemostasis. A second layer with 3-0 PDS suture was placed into the deep dermal tissue on both sides, after closure of the capsule, and the skin was closed with a 4-0 Biosyn running subcuticular suture. The donor site was closed with 3-0 and 4-0 interrupted and running sutures, along the course of the lower abdominal area, and showed good shape and contour. All wounds were dressed sterilely with Dermabond and Steri-Strip dressings. She was placed into a Surgi-Bra, and awakened, extubated, and transferred to the recovery room in satisfactory condition. BROWN PETE M.D. /[id number]
[2016-12-17] MEDS: THIAMINE HCL 100 MG TABLET (FP) PO SCH (21:41)
[2016-12-17] MEDS: QUEtiapine FUMARATE 100 MG TABLET (FP) PO SCH (21:41)
[2016-12-17] MEDS: traZODone HCL 50 MG TABLET (FP) PO SCH (21:42)
[2016-12-17] MEDS: INSULIN DETEMIR 100 UNITS/ML MDV SQ SCH (21:45)
[2016-12-18] MEDS: metFORMIN HCL 500 MG TABLET (FP) PO SCH ×2 (06:38→17:05)
[2016-12-18] MEDS: INSULIN SLIDING SCALE (NOVOLOG) 1 VIAL SQ SCH ×3 (06:38→17:05)
[2016-12-18] MEDS ORDERED: PT OWN MED DRAWER 7, Y5N ONE (06:41)
[2016-12-18] MEDS: AMMONIUM LACTATE 12% LOTION 225 GM BOTTLE TP PRN ×2 (06:41→10:27)
[2016-12-18] MEDS ORDERED: INSULIN (NOVOLOG) ASPART 100 UNITS/ML 10ML VIAL ONE ×3 (06:46→17:04)
[2016-12-18] MEDS: PRENATAL VITAMINS W/ FOLIC ACID TABLET (FP) PO SCH (10:27)
[2016-12-18] MEDS: NICOTINE 21 MG/24 HOURS TOPICAL PATCH TD SCH (10:28)
[2016-12-18] MEDS: INSULIN DETEMIR 100 UNITS/ML MDV SQ SCH (21:45)
[2016-12-18] MEDS: THIAMINE HCL 100 MG TABLET (FP) PO SCH (21:46)
[2016-12-18] MEDS: QUEtiapine FUMARATE 100 MG TABLET (FP) PO SCH (21:46)
[2016-12-18] MEDS: traZODone HCL 50 MG TABLET (FP) PO SCH (21:46)
[2016-12-19] MEDS: INSULIN SLIDING SCALE (NOVOLOG) 1 VIAL SQ SCH ×5 (00:39→21:41)
[2016-12-19] MEDS: metFORMIN HCL 500 MG TABLET (FP) PO SCH ×2 (06:59→16:55)
[2016-12-19] MEDS ORDERED: PT OWN MED DRAWER 7, Y5N ONE (08:42)
[2016-12-19] MEDS: PRENATAL VITAMINS W/ FOLIC ACID TABLET (FP) PO SCH (09:56)
[2016-12-19] MEDS: NICOTINE 21 MG/24 HOURS TOPICAL PATCH TD SCH (09:56)
[2016-12-19] MEDS ORDERED: INSULIN (NOVOLOG) ASPART 100 UNITS/ML 10ML VIAL ONE ×4 (12:07→22:07)
[2016-12-19] MEDS: traZODone HCL 50 MG TABLET (FP) PO SCH (21:38)
[2016-12-19] MEDS: THIAMINE HCL 100 MG TABLET (FP) PO SCH (21:38)
[2016-12-19] MEDS: QUEtiapine FUMARATE 100 MG TABLET (FP) PO SCH (21:38)
[2016-12-19] MEDS: INSULIN DETEMIR 100 UNITS/ML MDV SQ SCH (21:40)
[2016-12-20] MEDS: metFORMIN HCL 500 MG TABLET (FP) PO SCH ×2 (06:48→16:43)
[2016-12-20] MEDS ORDERED: INSULIN (NOVOLOG) ASPART 100 UNITS/ML 10ML VIAL ONE ×3 (06:58→16:43)
[2016-12-20] MEDS: INSULIN SLIDING SCALE (NOVOLOG) 1 VIAL SQ SCH ×4 (08:08→21:45)
[2016-12-20] MEDS: PRENATAL VITAMINS W/ FOLIC ACID TABLET (FP) PO SCH (10:03)
[2016-12-20] MEDS: NICOTINE 21 MG/24 HOURS TOPICAL PATCH TD SCH (10:03)
[2016-12-20] MEDS: traZODone HCL 50 MG TABLET (FP) PO SCH (21:43)
[2016-12-20] MEDS: THIAMINE HCL 100 MG TABLET (FP) PO SCH (21:43)
[2016-12-20] MEDS: QUEtiapine FUMARATE 100 MG TABLET (FP) PO SCH (21:43)
[2016-12-20] MEDS: INSULIN DETEMIR 100 UNITS/ML MDV SQ SCH (21:45)
[2016-12-21] MEDS: metFORMIN HCL 500 MG TABLET (FP) PO SCH ×2 (06:43→16:42)
[2016-12-21] MEDS: INSULIN SLIDING SCALE (NOVOLOG) 1 VIAL SQ SCH ×4 (08:57→21:02)
[2016-12-21] MEDS: PRENATAL VITAMINS W/ FOLIC ACID TABLET (FP) PO SCH (10:09)
[2016-12-21] MEDS: NICOTINE 21 MG/24 HOURS TOPICAL PATCH TD SCH (10:09)
[2016-12-21] MEDS ORDERED: INSULIN (NOVOLOG) ASPART 100 UNITS/ML 10ML VIAL ONE ×2 (11:44→16:10)
[2016-12-21] MEDS: INSULIN DETEMIR 100 UNITS/ML MDV SQ SCH (21:02)
[2016-12-21] MEDS: NICOTINE POLACRILEX 2 MG GUM BUC PRN (21:36)
[2016-12-21] MEDS: traZODone HCL 50 MG TABLET (FP) PO SCH (21:36)
[2016-12-21] MEDS: QUEtiapine FUMARATE 100 MG TABLET (FP) PO SCH (21:36)
[2016-12-21] MEDS: THIAMINE HCL 100 MG TABLET (FP) PO SCH (21:36)
[2016-12-22] MEDS: metFORMIN HCL 500 MG TABLET (FP) PO SCH ×2 (06:33→16:58)
[2016-12-22] MEDS: NICOTINE POLACRILEX 2 MG GUM BUC PRN (06:34)
[2016-12-22] MEDS: INSULIN SLIDING SCALE (NOVOLOG) 1 VIAL SQ SCH ×4 (06:34→21:40)
[2016-12-22] MEDS: PRENATAL VITAMINS W/ FOLIC ACID TABLET (FP) PO SCH (10:24)
[2016-12-22] MEDS: NICOTINE 21 MG/24 HOURS TOPICAL PATCH TD SCH (10:24)
[2016-12-22] MEDS ORDERED: INSULIN (NOVOLOG) ASPART 100 UNITS/ML 10ML VIAL ONE ×2 (11:57→16:57)
[2016-12-22] MEDS: traZODone HCL 50 MG TABLET (FP) PO SCH (21:39)
[2016-12-22] MEDS: QUEtiapine FUMARATE 100 MG TABLET (FP) PO SCH (21:39)
[2016-12-22] MEDS: THIAMINE HCL 100 MG TABLET (FP) PO SCH (21:39)
[2016-12-22] MEDS: INSULIN DETEMIR 100 UNITS/ML MDV SQ SCH (21:41)
[2016-12-23] MEDS: metFORMIN HCL 500 MG TABLET (FP) PO SCH ×2 (06:16→16:51)
[2016-12-23] MEDS: INSULIN SLIDING SCALE (NOVOLOG) 1 VIAL SQ SCH ×4 (06:16→21:45)
[2016-12-23] MEDS ORDERED: PT OWN MED DRAWER 7, Y5N ONE (08:56)
[2016-12-23] MEDS: PRENATAL VITAMINS W/ FOLIC ACID TABLET (FP) PO SCH (10:38)
[2016-12-23] MEDS: NICOTINE 21 MG/24 HOURS TOPICAL PATCH TD SCH (10:38)
[2016-12-23] MEDS ORDERED: INSULIN (NOVOLOG) ASPART 100 UNITS/ML 10ML VIAL ONE ×2 (12:02→16:46)
[2016-12-23] MEDS: QUEtiapine FUMARATE 50 MG TABLET PO SCH ×2 (16:53→21:42)
[2016-12-23] MEDS: THIAMINE HCL 100 MG TABLET (FP) PO SCH (21:42)
[2016-12-23] MEDS: traZODone HCL 50 MG TABLET (FP) PO SCH (21:44)
[2016-12-23] MEDS: INSULIN DETEMIR 100 UNITS/ML MDV SQ SCH (21:47)
[2016-12-24] MEDS: QUEtiapine FUMARATE 50 MG TABLET PO SCH ×2 (06:21→21:48)
[2016-12-24] MEDS: metFORMIN HCL 500 MG TABLET (FP) PO SCH ×2 (06:22→16:54)
[2016-12-24] MEDS: INSULIN SLIDING SCALE (NOVOLOG) 1 VIAL SQ SCH ×4 (06:48→21:50)
[2016-12-24] MEDS ORDERED: INSULIN (NOVOLOG) ASPART 100 UNITS/ML 10ML VIAL ONE ×3 (07:35→16:54)
[2016-12-24] MEDS: PRENATAL VITAMINS W/ FOLIC ACID TABLET (FP) PO SCH (09:23)
[2016-12-24] MEDS: NICOTINE 21 MG/24 HOURS TOPICAL PATCH TD SCH (09:23)
[2016-12-24] MEDS: traZODone HCL 50 MG TABLET (FP) PO SCH (21:46)
[2016-12-24] MEDS: THIAMINE HCL 100 MG TABLET (FP) PO SCH (21:47)
[2016-12-24] MEDS: INSULIN DETEMIR 100 UNITS/ML MDV SQ SCH (21:50)
[2016-12-25] MEDS: metFORMIN HCL 500 MG TABLET (FP) PO SCH ×2 (06:35→17:06)
[2016-12-25] MEDS: INSULIN SLIDING SCALE (NOVOLOG) 1 VIAL SQ SCH ×4 (06:35→21:47)
[2016-12-25] MEDS ORDERED: INSULIN (NOVOLOG) ASPART 100 UNITS/ML 10ML VIAL ONE ×2 (06:35→12:09)
[2016-12-25] MEDS: PRENATAL VITAMINS W/ FOLIC ACID TABLET (FP) PO SCH (10:38)
[2016-12-25] MEDS: NICOTINE 21 MG/24 HOURS TOPICAL PATCH TD SCH (11:24)
[2016-12-25] MEDS: traZODone HCL 50 MG TABLET (FP) PO SCH (21:44)
[2016-12-25] MEDS: THIAMINE HCL 100 MG TABLET (FP) PO SCH (21:44)
[2016-12-25] MEDS: QUEtiapine FUMARATE 50 MG TABLET PO SCH (21:44)
[2016-12-25] MEDS: INSULIN DETEMIR 100 UNITS/ML MDV SQ SCH (21:47)
[2016-12-26] MEDS: INSULIN SLIDING SCALE (NOVOLOG) 1 VIAL SQ SCH ×4 (06:33→21:01)
[2016-12-26] MEDS: metFORMIN HCL 500 MG TABLET (FP) PO SCH ×2 (06:33→16:44)
[2016-12-26] MEDS: NICOTINE 21 MG/24 HOURS TOPICAL PATCH TD SCH (09:07)
[2016-12-26] MEDS: PRENATAL VITAMINS W/ FOLIC ACID TABLET (FP) PO SCH (09:07)
[2016-12-26] MEDS ORDERED: INSULIN (NOVOLOG) ASPART 100 UNITS/ML 10ML VIAL ONE (11:51)
[2016-12-26] MEDS ORDERED: QUEtiapine FUMARATE 25 MG TABLET (FP) ONE (20:45)
[2016-12-26] MEDS: INSULIN DETEMIR 100 UNITS/ML MDV SQ SCH (21:02)
[2016-12-26] MEDS: QUEtiapine FUMARATE 50 MG TABLET PO SCH (21:02)
[2016-12-26] MEDS: THIAMINE HCL 100 MG TABLET (FP) PO SCH (21:03)
[2016-12-26] MEDS: traZODone HCL 50 MG TABLET (FP) PO SCH (21:03)
[2016-12-27] MEDS: metFORMIN HCL 500 MG TABLET (FP) PO SCH ×2 (06:32→16:34)
[2016-12-27] MEDS: INSULIN SLIDING SCALE (NOVOLOG) 1 VIAL SQ SCH ×4 (06:32→21:51)
[2016-12-27] MEDS: PRENATAL VITAMINS W/ FOLIC ACID TABLET (FP) PO SCH (09:03)
[2016-12-27] MEDS: NICOTINE 21 MG/24 HOURS TOPICAL PATCH TD SCH (09:03)
[2016-12-27] MEDS ORDERED: INSULIN (NOVOLOG) ASPART 100 UNITS/ML 10ML VIAL ONE ×2 (11:50→20:59)
[2016-12-27] MEDS: QUEtiapine FUMARATE 50 MG TABLET PO SCH (21:51)
[2016-12-27] MEDS: INSULIN DETEMIR 100 UNITS/ML MDV SQ SCH (21:51)
[2016-12-27] MEDS: traZODone HCL 50 MG TABLET (FP) PO SCH (21:51)
[2016-12-27] MEDS: THIAMINE HCL 100 MG TABLET (FP) PO SCH (21:51)
[2016-12-28] MEDS: INSULIN SLIDING SCALE (NOVOLOG) 1 VIAL SQ SCH ×4 (06:21→21:03)
[2016-12-28] MEDS: metFORMIN HCL 500 MG TABLET (FP) PO SCH ×2 (06:21→16:59)
[2016-12-28] MEDS ORDERED: INSULIN (NOVOLOG) ASPART 100 UNITS/ML 10ML VIAL ONE ×3 (08:18→17:12)
[2016-12-28] MEDS: PRENATAL VITAMINS W/ FOLIC ACID TABLET (FP) PO SCH (10:31)
[2016-12-28] MEDS: NICOTINE 21 MG/24 HOURS TOPICAL PATCH TD SCH (10:32)
[2016-12-28] MEDS: INSULIN DETEMIR 100 UNITS/ML MDV SQ SCH (21:03)
[2016-12-28] MEDS: traZODone HCL 50 MG TABLET (FP) PO SCH (21:04)
[2016-12-28] MEDS: QUEtiapine FUMARATE 50 MG TABLET PO SCH (21:04)
[2016-12-28] MEDS: THIAMINE HCL 100 MG TABLET (FP) PO SCH (21:04)
[2016-12-28] MEDS: AMMONIUM LACTATE 12% LOTION 225 GM BOTTLE TP PRN (21:18)
[2016-12-29] MEDS: metFORMIN HCL 500 MG TABLET (FP) PO SCH ×2 (06:37→17:08)
[2016-12-29] MEDS: INSULIN SLIDING SCALE (NOVOLOG) 1 VIAL SQ SCH ×4 (07:57→21:23)
[2016-12-29] MEDS ORDERED: INSULIN (NOVOLOG) ASPART 100 UNITS/ML 10ML VIAL ONE ×3 (08:24→17:06)
[2016-12-29] MEDS: PRENATAL VITAMINS W/ FOLIC ACID TABLET (FP) PO SCH (09:37)
[2016-12-29] MEDS: NICOTINE 21 MG/24 HOURS TOPICAL PATCH TD SCH (09:38)
[2016-12-29] MEDS: INSULIN DETEMIR 100 UNITS/ML MDV SQ SCH (21:20)
[2016-12-29] MEDS: traZODone HCL 50 MG TABLET (FP) PO SCH (21:22)
[2016-12-29] MEDS: QUEtiapine FUMARATE 50 MG TABLET PO SCH (21:22)
[2016-12-29] MEDS: THIAMINE HCL 100 MG TABLET (FP) PO SCH (21:22)
[2016-12-30] MEDS: metFORMIN HCL 500 MG TABLET (FP) PO SCH ×2 (06:19→17:29)
[2016-12-30] MEDS: INSULIN SLIDING SCALE (NOVOLOG) 1 VIAL SQ SCH ×4 (06:19→21:41)
[2016-12-30] MEDS: NICOTINE 21 MG/24 HOURS TOPICAL PATCH TD SCH (10:15)
[2016-12-30] MEDS: PRENATAL VITAMINS W/ FOLIC ACID TABLET (FP) PO SCH (10:15)
[2016-12-30] MEDS ORDERED: INSULIN (NOVOLOG) ASPART 100 UNITS/ML 10ML VIAL ONE (11:48)
[2016-12-30] MEDS: metroNIDAZOLE 0.75% VAGINAL GEL 70 GM TUBE VG SCH ×2 (16:02→21:35)
[2016-12-30] MEDS: traZODone HCL 50 MG TABLET (FP) PO SCH (21:33)
[2016-12-30] MEDS: THIAMINE HCL 100 MG TABLET (FP) PO SCH (21:33)
[2016-12-30] MEDS: QUEtiapine FUMARATE 50 MG TABLET PO SCH (21:33)
[2016-12-30] MEDS: INSULIN DETEMIR 100 UNITS/ML MDV SQ SCH (21:40)
[2016-12-31] MEDS: INSULIN SLIDING SCALE (NOVOLOG) 1 VIAL SQ SCH ×4 (06:16→21:15)
[2016-12-31] MEDS: metFORMIN HCL 500 MG TABLET (FP) PO SCH ×2 (06:16→16:56)
[2016-12-31] MEDS ORDERED: INSULIN (NOVOLOG) ASPART 100 UNITS/ML 10ML VIAL ONE ×3 (07:37→16:54)
[2016-12-31] MEDS: NICOTINE 21 MG/24 HOURS TOPICAL PATCH TD SCH (09:56)
[2016-12-31] MEDS: PRENATAL VITAMINS W/ FOLIC ACID TABLET (FP) PO SCH (09:56)
[2016-12-31] MEDS ORDERED: QUEtiapine FUMARATE 25 MG TABLET (FP) ONE (19:44)
[2016-12-31] MEDS: THIAMINE HCL 100 MG TABLET (FP) PO SCH (21:13)
[2016-12-31] MEDS: traZODone HCL 50 MG TABLET (FP) PO SCH (21:13)
[2016-12-31] MEDS: INSULIN DETEMIR 100 UNITS/ML MDV SQ SCH (21:14)
[2016-12-31] MEDS: metroNIDAZOLE 0.75% VAGINAL GEL 70 GM TUBE VG SCH (21:15)
[2016-12-31] MEDS: QUEtiapine FUMARATE 50 MG TABLET PO SCH (21:15)
[2017-01-01] MEDS: metFORMIN HCL 500 MG TABLET (FP) PO SCH ×2 (06:15→17:02)
[2017-01-01] MEDS: INSULIN SLIDING SCALE (NOVOLOG) 1 VIAL SQ SCH ×4 (06:15→22:40)
[2017-01-01] MEDS ORDERED: INSULIN (NOVOLOG) ASPART 100 UNITS/ML 10ML VIAL ONE ×2 (07:51→12:03)
[2017-01-01] MEDS: PRENATAL VITAMINS W/ FOLIC ACID TABLET (FP) PO SCH (10:13)
[2017-01-01] MEDS: AMMONIUM LACTATE 12% LOTION 225 GM BOTTLE TP PRN (10:14)
[2017-01-01] MEDS: NICOTINE 21 MG/24 HOURS TOPICAL PATCH TD SCH (10:14)
[2017-01-01] MEDS ORDERED: COLLOIDAL OATMEAL 1 BAR EACH TP PRN (13:09)
[2017-01-01] MEDS: HYDROCORTISONE 1% TOPICAL CREAM 30 GM TUBE TP SCH ×2 (15:55→22:36)
[2017-01-01] MEDS: THIAMINE HCL 100 MG TABLET (FP) PO SCH (21:15)
[2017-01-01] MEDS: metroNIDAZOLE 0.75% VAGINAL GEL 70 GM TUBE VG SCH (21:15)
[2017-01-01] MEDS: traZODone HCL 50 MG TABLET (FP) PO SCH (21:15)
[2017-01-01] MEDS: QUEtiapine FUMARATE 50 MG TABLET PO SCH (21:15)
[2017-01-01] MEDS: INSULIN DETEMIR 100 UNITS/ML MDV SQ SCH (21:17)
[2017-01-02] MEDS: metFORMIN HCL 500 MG TABLET (FP) PO SCH ×2 (06:29→16:50)
[2017-01-02] MEDS: INSULIN SLIDING SCALE (NOVOLOG) 1 VIAL SQ SCH ×4 (07:46→21:05)
[2017-01-02] MEDS ORDERED: INSULIN (NOVOLOG) ASPART 100 UNITS/ML 10ML VIAL ONE ×3 (07:49→16:51)
[2017-01-02] MEDS ORDERED: PT OWN MED DRAWER 7, Y5N ONE (08:36)
[2017-01-02] MEDS: PRENATAL VITAMINS W/ FOLIC ACID TABLET (FP) PO SCH (10:38)
[2017-01-02] MEDS: HYDROCORTISONE 1% TOPICAL CREAM 30 GM TUBE TP SCH ×2 (10:38→21:04)
[2017-01-02] MEDS: NICOTINE 21 MG/24 HOURS TOPICAL PATCH TD SCH (10:38)
[2017-01-02] MEDS: INSULIN DETEMIR 100 UNITS/ML MDV SQ SCH (21:02)
[2017-01-02] MEDS: traZODone HCL 50 MG TABLET (FP) PO SCH (21:04)
[2017-01-02] MEDS: THIAMINE HCL 100 MG TABLET (FP) PO SCH (21:05)
[2017-01-02] MEDS: QUEtiapine FUMARATE 50 MG TABLET PO SCH (21:05)
[2017-01-02] MEDS: metroNIDAZOLE 0.75% VAGINAL GEL 70 GM TUBE VG SCH (22:51)
[2017-01-03] MEDS: metFORMIN HCL 500 MG TABLET (FP) PO SCH ×2 (06:37→16:51)
[2017-01-03] MEDS: INSULIN SLIDING SCALE (NOVOLOG) 1 VIAL SQ SCH ×4 (06:38→21:18)
[2017-01-03] MEDS ORDERED: INSULIN (NOVOLOG) ASPART 100 UNITS/ML 10ML VIAL ONE ×3 (06:53→16:50)
[2017-01-03] MEDS ORDERED: PT OWN MED DRAWER 7, Y5N ONE ×2 (08:42→13:19)
[2017-01-03] MEDS: HYDROCORTISONE 1% TOPICAL CREAM 30 GM TUBE TP SCH ×2 (10:03→21:19)
[2017-01-03] MEDS: PRENATAL VITAMINS W/ FOLIC ACID TABLET (FP) PO SCH (10:03)
[2017-01-03] MEDS: NICOTINE 21 MG/24 HOURS TOPICAL PATCH TD SCH (10:03)
[2017-01-03] MEDS: metroNIDAZOLE 0.75% VAGINAL GEL 70 GM TUBE VG SCH (21:15)
[2017-01-03] MEDS: traZODone HCL 50 MG TABLET (FP) PO SCH (21:16)
[2017-01-03] MEDS: THIAMINE HCL 100 MG TABLET (FP) PO SCH (21:16)
[2017-01-03] MEDS: QUEtiapine FUMARATE 50 MG TABLET PO SCH (21:16)
[2017-01-03] MEDS: INSULIN DETEMIR 100 UNITS/ML MDV SQ SCH (21:19)
[2017-01-04] MEDS ORDERED: INSULIN (NOVOLOG) ASPART 100 UNITS/ML 10ML VIAL ONE ×3 (03:25→16:27)
[2017-01-04] MEDS: INSULIN SLIDING SCALE (NOVOLOG) 1 VIAL SQ SCH ×4 (06:44→21:40)
[2017-01-04] MEDS: metFORMIN HCL 500 MG TABLET (FP) PO SCH ×2 (06:44→16:24)
[2017-01-04] MEDS ORDERED: PT OWN MED DRAWER 7, Y5N ONE (08:58)
[2017-01-04] MEDS: PRENATAL VITAMINS W/ FOLIC ACID TABLET (FP) PO SCH (10:06)
[2017-01-04] MEDS: HYDROCORTISONE 1% TOPICAL CREAM 30 GM TUBE TP SCH ×2 (10:07→21:41)
[2017-01-04] MEDS: NICOTINE 21 MG/24 HOURS TOPICAL PATCH TD SCH (10:07)
[2017-01-04] MEDS: traZODone HCL 50 MG TABLET (FP) PO SCH (21:40)
[2017-01-04] MEDS: INSULIN DETEMIR 100 UNITS/ML MDV SQ SCH (21:40)
[2017-01-04] MEDS: QUEtiapine FUMARATE 50 MG TABLET PO SCH (21:41)
[2017-01-04] MEDS: THIAMINE HCL 100 MG TABLET (FP) PO SCH (21:41)
[2017-01-05] MEDS: metFORMIN HCL 500 MG TABLET (FP) PO SCH ×2 (06:55→17:03)
[2017-01-05] MEDS: INSULIN SLIDING SCALE (NOVOLOG) 1 VIAL SQ SCH ×4 (06:55→21:31)
[2017-01-05] MEDS ORDERED: PT OWN MED DRAWER 7, Y5N ONE (08:50)
[2017-01-05] MEDS: PRENATAL VITAMINS W/ FOLIC ACID TABLET (FP) PO SCH (10:16)
[2017-01-05] MEDS: NICOTINE 21 MG/24 HOURS TOPICAL PATCH TD SCH (10:16)
[2017-01-05] MEDS: HYDROCORTISONE 1% TOPICAL CREAM 30 GM TUBE TP SCH ×2 (10:16→21:31)
[2017-01-05] MEDS ORDERED: INSULIN (NOVOLOG) ASPART 100 UNITS/ML 10ML VIAL ONE (11:30)
[2017-01-05] MEDS: QUEtiapine FUMARATE 50 MG TABLET PO SCH (21:30)
[2017-01-05] MEDS: THIAMINE HCL 100 MG TABLET (FP) PO SCH (21:30)
[2017-01-05] MEDS: traZODone HCL 50 MG TABLET (FP) PO SCH (21:30)
[2017-01-05] MEDS: INSULIN DETEMIR 100 UNITS/ML MDV SQ SCH (21:33)
[2017-01-05] MEDS ORDERED: INSULIN DETEMIR 100 UNITS/ML MDV SQ ONE (21:34)
[2017-01-06] MEDS: INSULIN SLIDING SCALE (NOVOLOG) 1 VIAL SQ SCH ×4 (06:22→21:31)
[2017-01-06] MEDS: metFORMIN HCL 500 MG TABLET (FP) PO SCH ×2 (06:22→17:12)
[2017-01-06] MEDS: NICOTINE 21 MG/24 HOURS TOPICAL PATCH TD SCH (09:50)
[2017-01-06] MEDS: HYDROCORTISONE 1% TOPICAL CREAM 30 GM TUBE TP SCH ×2 (09:50→21:30)
[2017-01-06] MEDS: PRENATAL VITAMINS W/ FOLIC ACID TABLET (FP) PO SCH (09:50)
--- NOTE | 2017-01-06 11:13 | PN ---
Psychiatric Progress Note Vital Signs: Vital Signs Period Temp Pulse Resp BP Sys/Mata Pulse Ox Last 24 Hr 97.7 F 86 16-18 117/77 Date of Session: 01/06/17 Chief Complaint:: Discharge visit HPI: Patient addressed Alcohol,Cocaine and Cannabis dependence comorbid with Bipolar disorder. ROS: Significant for Hep C,DM. Current Medications: Active Medications Generic Name Dose Route Start Last Admin Trade Name Freq PRN Reason Stop Dose Admin Acetaminophen 650 mg 12/10/16 15:15 Tylenol - PO Q4H PRN FEVER OR PAIN Al Hydroxide/Mg Hydroxide 30 ml 12/10/16 15:15 Mylanta Oral Suspension - PO Q6H PRN DYSPEPSIA Colloidal Oatmeal 1 applic 01/01/17 13:09 01/01/17 15:56 Aveeno Soap - TP 1 applic DAILY PRN Administration HYGEINE Eucalyptus/Menthol/Phenol/Sorbitol 1 each 12/10/16 15:15 Cepastat Lozenge - MM Q4H PRN SORE THROAT Guaifenesin 10 ml 12/10/16 15:15 Robitussin Dm - PO Q6H PRN COUGH Hydrocortisone 1 applic 01/01/17 15:00 01/06/17 09:50 Hytone 1% Cream - TP Not Given BID FRANK Ibuprofen 400 mg 12/10/16 15:15 Motrin - PO Q6H PRN PAIN Insulin Aspart 1 vial 12/12/16 22:00 01/06/17 06:22 Novolog Vial Sliding Scale - SQ Not Given ACHS [facility] Protocol Insulin Detemir 10 units 12/10/16 22:00 01/05/17 21:33 Levemir Vial SQ 10 units HS FRANK Administration Lactic Acid 1 applic 12/17/16 15:07 01/01/17 10:14 Lac-Hydrin 12 TP 1 applic DAILY PRN Administration DRY SKIN Loperamide HCl 4 mg 12/10/16 15:15 Imodium - PO Q6H PRN DIARRHEA Magnesium Hydroxide 30 ml 12/10/16 15:15 Milk Of Magnesia - PO DAILY PRN CONSTIPATION Metformin HCl 1,000 mg 12/10/16 16:30 01/06/17 06:22 Glucophage - PO 1,000 mg BID@0700,1630 FRANK Administration Nicotine 21 mg 12/10/16 15:21 01/06/17 09:50 Nicoderm Patch - TD Not Given DAILY FRANK Nicotine Polacrilex 2 mg 12/10/16 15:15 12/22/16 06:34 Nicorette Gum - BUC 2 mg Q2H PRN Administration NICOTINE REPLACEMENT RX Multivit/Folic Acid/Iron 1 tab 12/11/16 10:00 01/06/17 09:50 Vitamins (Sjr) - PO 1 tab DAILY FRANK Administration Pseudoephedrine/Triprolidine 1 combo 12/10/16 15:15 Actifed - PO TID PRN NASAL CONGESTION Quetiapine Fumarate 150 mg 12/24/16 22:00 01/05/17 21:30 Seroquel - PO 150 mg HS FRANK Administration Thiamine HCl 100 mg 12/10/16 22:00 01/05/17 21:30 Vitamin B1 - PO 100 mg HS FRANK Administration Trazodone HCl 50 mg 12/11/16 22:00 01/05/17 21:30 Desyrel - PO 50 mg HS FRANK Administration Current Side Effect: No Lab tests ordered: No Lab tests reviewed: Yes Provider note:: Patient will complete this program tomorrow 01/06/17.She has met her treatment goals and will continue to address her issues on outpatient basis at [facility].Patient reports finding that current medications :Seroquel 150 mg po hs helps to cope with mood instability,sleeping difficulties.Scripts for 30 days provided.Supportive therapy provided focusing on relapse prevention . Patient is sable for discharge tomorrow 01/07/17. Total face to face time:: 30 Mental Status Exam - Mental Status Exam Alert and Oriented to: Time, Place, Person Cognitive Function: Grossly Intact Patient Appearance: Well Groomed Mood: Euthymic Affect: Mood Congruent Patient Behavior: Cooperative Speech Pattern: Clear Voice Loudness: Normal Thought Process: Goal Oriented Thought Disorder: Being Controlled Hallucinations: Denies Suicidal Ideation: Denies Homicidal Ideation: Denies Insight/Judgement: Fair Sleep: Fair Appetite: Good Muscle strength/Tone: Normal Gait/Station: Normal Psychiatric Treatment Plan - Problem List (1) Diabetes Current Visit: Yes (2) Hepatitis C Current Visit: Yes (3) Nicotine dependence Current Visit: Yes (4) Bipolar disorder Current Visit: Yes Qualifiers: Active/Remission status: currently active Comment: Self-report. (5) Alcohol dependence Current Visit: Yes (6) Cocaine dependence Current Visit: Yes (7) Cannabis dependence Current Visit: Yes
[2017-01-06] MEDS ORDERED: INSULIN (NOVOLOG) ASPART 100 UNITS/ML 10ML VIAL ONE (12:01)
[2017-01-06] MEDS: traZODone HCL 50 MG TABLET (FP) PO SCH (21:23)
[2017-01-06] MEDS: THIAMINE HCL 100 MG TABLET (FP) PO SCH (21:23)
[2017-01-06] MEDS: QUEtiapine FUMARATE 50 MG TABLET PO SCH (21:24)
[2017-01-06] MEDS: INSULIN DETEMIR 100 UNITS/ML MDV SQ SCH (21:31)
[2017-01-07] MEDS: metFORMIN HCL 500 MG TABLET (FP) PO SCH (06:47)
[2017-01-07] MEDS: INSULIN SLIDING SCALE (NOVOLOG) 1 VIAL SQ SCH (06:47)
[2017-01-07 07:23] VITALS: BP 125/80; PULSE 91; TEMP 97.3
[2017-01-07] MEDS: HYDROCORTISONE 1% TOPICAL CREAM 30 GM TUBE TP SCH (09:50)
[2017-01-07] MEDS: NICOTINE 21 MG/24 HOURS TOPICAL PATCH TD SCH (09:50)
[2017-01-07] MEDS: PRENATAL VITAMINS W/ FOLIC ACID TABLET (FP) PO SCH (09:50)
== END 2017-01-07 10:00 | disposition home or self-care (01) | DRG 772 ==
LOC: YASAS 14:27 → Y3E 14:28
PROVIDERS: ADMIT Psychiatry & Neurology Psychiatry; ATTEND Psychiatry & Neurology Psychiatry
PROC: HZ42ZZZ Group Counseling for Substance Abuse Treatment, Cognitive-Behavioral (ICD-10-PCS; principal; 2016-12-10)
DX: F10.20 Alcohol dependence, uncomplicated (principal); F14.20 Cocaine dependence, uncomplicated; F12.20 Cannabis dependence, uncomplicated; F17.210 Nicotine dependence, cigarettes, uncomplicated; F31.9 Bipolar disorder, unspecified; E11.9 Type 2 diabetes mellitus without complications; B18.2 Chronic viral hepatitis C

== ENCOUNTER 2017-05-17 11:50 | Inpatient (IN) | payer OTHER ==
[2017-05-17 12:22] VITALS: BMI 27.1
--- NOTE | 2017-05-17 13:48 | HP ---
CIWA Score - CIWA Score Nausea/Vomitin Muscle Tremors: 3 Anxiety: 3 Agitation: 3 Paroxysmal Sweats: 1-Minimal Palms Moist Orientation: 0-Oriented Tacttile Disturbances: 2-Mild Itch/Numbness/Burn Auditory Disturbances: 2-Mild Harshness/Frighten Visual Disturbances: 0-None Headache: 2-Mild CIWA-Ar Total Score: 19 Admission ROS BHS - HPI Chief Complaint: I MA HERE TO STOP DRINKING ALCOHOL AND COCAINE Allergies/Adverse Reactions: Allergies Allergy/AdvReac Type Severity Reaction Status Date / Time No Known Allergies Allergy Verified 05/17/17 13:18 History of Present Illness: THIS 6 YEARS OLD FEMALE WITH ALCOHOL AND COCAINE DEPENDENCE,SEEKING DETOX, - Ebola screening Have you traveled outside of the country in the last 21 days: No Have you had contact with anyone from an Ebola affected area: No Have you been sick,other than usual withdrawal symptoms: No Do you have a fever: No Patient History - Patient Medical History Hx Anemia: No Hx Asthma: No Hx Chronic Obstructive Pulmonary Disease (COPD): No Hx Cancer: No Hx Cardiac Disorders: No Hx Congestive Heart Failure: No Hx Hypertension: No Hx Hypercholesterolemia: No HX Cerebrovascular Accident: No Hx Seizures: No Hx Diabetes: Yes Hx Gastrointestinal Disorders: No Hx Liver Disease: Yes (Hep C) Hx Genitourinary Disorders: No Hx Sexually Transmitted Disorders: No Hx Renal Disease (ESRD): No Hx Thyroid Disease: No Hx Human Immunodeficiency Virus (HIV): No (Negative 2017) Hx Hepatitis C: Yes Hx Depression: Yes Hx Suicide Attempt: No Hx Bipolar Disorder: Yes Hx Schizophrenia: No - Patient Surgical History Past Surgical History: No Hx Neurologic Surgery: No Hx Cataract Extraction: No Hx Cardiac Surgery: No Hx Lung Surgery: No Hx Breast Surgery: No Hx Breast Biopsy: No Hx Abdominal Surgery: No Hx Appendectomy: No Hx Cholecystectomy: No Hx Genitourinary Surgery: No Hx Section: No Hx Orthopedic Surgery: No Anesthesia Reaction: No - PPD History Date: 12/09/16 Results: 0mm - Reproductive History Last Menstrual Period: 07/07/14 - Smoking Cessation Smoking history: Current every day smoker Have you smoked in the past 12 months: Yes Aproximately how many cigarettes per day: 10 Hx Chewing Tobacco Use: No Initiated information on smoking cessation: Yes 'Breaking Loose' booklet given: 05/17/17 - Substances Abused Alcohol Route: Oral Frequency: Daily Amount used: 1 PINT LIQUOR/6PK BEER Age of first use: 13 Date of Last Use: 05/16/17 Cocaine Route: Smoking Frequency: 1-3 times last 30 days Amount used: $20 Age of first use: 16 Date of Last Use: 05/16/17 Admission Physical Exam BHS - Vital Signs Vital Signs: Vital Signs - 24 hr 05/17/17 12:09 Temperature 97.4 F L Pulse Rate 101 H Respiratory 18 Rate Blood Pressure 162/107 Screened but not Admitted - Documentation of Visit Screened but not Admitted: Yes Left Prior to Completion of Assessment: No Insurance Authorization Denied: No Patient Does Not Meet Criteria for Admission: Yes Additional Information/Explanation: PATIENT DOES NOT MEET CRITERIA FOR DETOX, FINISHED DETOX,DISCHARGE 2 DAYS AGO,NO WITHDRAWAL SYMPTOM,. DID NOT WANT TO GO TO REHAB,. REFER TO [facility] IN STABLE CONDITION, . NO SUICIDAL,NO HOMICIDAL [facility] Breath Alcohol Content Breath Alcohol Content: 0.016 Urine Pregancy Test - Result Urine Test Results: Negative- NO Line Present Urine Drug Screen - Results Drug Screen Negative: No Urine Drug Screen Results: SERA-Cocaine, BZO-Benzodiazepines
[2017-05-17] MEDS ORDERED: MAG HYDROX/AL HYDROX/SIMETH 30 ML UNIT-DOSE CUP PO PRN (20:22)
[2017-05-17] MEDS ORDERED: IBUPROFEN 400 MG TABLET (FP) PO PRN (20:22)
[2017-05-17] MEDS ORDERED: MAGNESIUM HYDROX 2400MG/30ML ORAL SUSPENSION 30 ML CUP PO PRN (20:22)
[2017-05-17] MEDS ORDERED: hydrOXYzine PAMOATE 50 MG CAPSULE (FP) PO PRN (20:22)
[2017-05-17] MEDS ORDERED: MENTHOL/PHENOL 1 EACH UD MM PRN (20:22)
[2017-05-17] MEDS ORDERED: MAGNESIUM CITRATE 300 ML BOTTLE PO PRN (20:22)
[2017-05-17] MEDS ORDERED: LOPERAMIDE HCL 2 MG CAPSULE PO PRN (20:22)
[2017-05-17] MEDS ORDERED: P-EPHED 60MG/TRIPROLIDI 2.5MG TABLET PO PRN (20:22)
[2017-05-17] MEDS ORDERED: ACETAMINOPHEN 325 MG TABLET (FP) PO PRN (20:22)
[2017-05-17] MEDS ORDERED: guaiFENesin/D-METHORPHAN HB 10 ML UNIT-DOSE CUPS PO PRN (20:22)
[2017-05-17] MEDS ORDERED: NICOTINE POLACRILEX 2 MG GUM BC PRN (20:22)
--- NOTE | 2017-05-17 20:32 | PN ---
[facility] Progress Note Note: Patient is 46 yo female with hx of alcohol, nicotine, and cocaine dependence had presented earlier seeking detox. Patient does not meet the criteria for detox. Patient was offered a rehab bed earlier today and the patient refuse. Patient returned to the facility after several hours and requested rehab services. Patient is AOx3, in no apparent distress. Vital Signs Temperature 97.4 F L 05/17/17 12:09 Pulse Rate 101 H 05/17/17 12:09 Respiratory Rate 97 H 05/17/17 14:40 Blood Pressure 157/94 05/17/17 14:40 O2 Sat by Pulse Oximetry (%)
[2017-05-17] MEDS ORDERED: MELATONIN 5 MG TABLETS PO PRN (22:00)
[2017-05-17] MEDS: THIAMINE HCL 100 MG TABLET (FP) PO SCH (23:16)
[2017-05-17] MEDS: INSULIN DETEMIR 100 UNITS/ML MDV SQ SCH (23:16)
--- NOTE | 2017-05-17 23:24 | PN ---
[facility] Progress Note Note: Patient reports that she was on her way to the bathroom, and she fell the sensation as she was going to fall. She states that she manage to sit herself on the floor gently. As per patient she denies any injury. Incident was unwitnessed. Patient AOx3 in no apparent distress with no apparent injury. Vital Signs Temperature 97.4 F L 05/17/17 12:09 Pulse Rate 101 H 05/17/17 12:09 Respiratory Rate 97 H 05/17/17 14:40 Blood Pressure 157/94 05/17/17 14:40 O2 Sat by Pulse Oximetry (%) Labs pending Plan: Fall protocol #2 Continue to monitor
[2017-05-18 02:33] LABS: URINE APPEARANCE TURBID; URINE BILIRUBIN NEGATIVE (<2.0 mg/dL); URINE BLOOD 2+ (NEGATIVE); URINE COLOR YELLOW; URINE GLUCOSE (UA) NEGATIVE (NEGATIVE); URINE KETONE NEGATIVE (NEGATIVE); URINE NITRITE POSITIVE (NEGATIVE); URINE UROBILINOGEN NEGATIVE mg/dL (0.2-1.0)
[2017-05-18 02:37] LABS: URINE LEUK ESTERASE 3+ (NEGATIVE); URINE PROTEIN 1+ (NEGATIVE)
[2017-05-18 02:44] LABS: EPI CELLS RARE /HPF (FEW); URINE BACTERIA MODERATE /hpf (NONE SEEN); URINE HYALINE CAST 5 /lpf; URINE MUCUS RARE
[2017-05-18] MEDS: metFORMIN HCL 500 MG TABLET (FP) PO SCH ×2 (07:10→16:57)
[2017-05-18] MEDS: INSULIN SLIDING SCALE (NOVOLOG) 1 VIAL SQ SCH ×2 (07:13→16:57)
[2017-05-18 10:31] LABS: HEMATOCRIT 36.9 % (32.4-45.2); HEMOGLOBIN 12.4 GM/dL (10.7-15.3); MCH 29.5 pg (25.7-33.7); MCHC 33.5 g/dl (32.0-36.0); MEAN CELL VOLUME 87.9 fl (80-96); MEAN PLT VOLUME 7.9 fl (7.5-11.1); PLATELET COUNT 507 K/MM3 (134-434); RBC 4.19 M/mm3 (3.60-5.2); RDW 13.3 % (11.6-15.6); WHITE BLOOD COUNT 8.8 K/mm3 (4.0-10.0)
--- NOTE | 2017-05-18 10:40 | EKG ---
Test Reason : Blood Pressure : / mmHG Vent. Rate : 082 BPM Atrial Rate : 082 BPM P-R Int : 160 ms QRS Dur : 076 ms QT Int : 370 ms P-R-T Axes : 074 089 073 degrees QTc Int : 432 ms NORMAL SINUS RHYTHM NORMAL ECG WHEN COMPARED WITH ECG OF 07-DEC-2016 22:05, NO SIGNIFICANT CHANGE WAS FOUND Confirmed by MD Mims Daniel ([id number]) on 05/18/2017 10:40:25 AM Referred By: Confirmed By:Darwin Mims MD
[2017-05-18 10:51] LABS: ALBUMIN 2.9 g/dl (3.4-5.0); ANION GAP 5 (8-16); BLOOD UREA NITROGEN 13 mg/dL (7-18); CALCIUM 9.2 mg/dL (8.5-10.1); CHLORIDE 107 mmol/L (98-107); CO2 27 mmol/L (21-32); GLUCOSE,RANDOM 169 mg/dL (74-106); SGOT/AST 29 U/L (15-37); SODIUM 139 mmol/L (136-145)
[2017-05-18 10:53] LABS: ALK PHOS 114 U/L (45-117); BILIRUBIN,TOTAL 0.2 mg/dL (0.2-1.0); CREATININE 0.6 mg/dL (0.55-1.02); SGPT/ALT 36 U/L (12-78); TOT PROT 6.9 g/dl (6.4-8.2)
[2017-05-18] MEDS: NICOTINE 14 MG/24 HOURS TOPICAL PATCH TD SCH (11:06)
[2017-05-18] MEDS: PRENATAL VITAMINS W/ FOLIC ACID TABLET (FP) PO SCH (11:06)
--- NOTE | 2017-05-18 11:49 | HP ---
Psychiatrist Admission - Data Date of interview: 05/18/17 Admission source: [facility] Identifying data: This is a third inpatient rehabilitation admission for this 46 year old AA female who is unemployed and residing with her . Medical History: Hep C, TD,diabetes mellitus, smokes cigarettes 1/2 PPD. Psychiatric History: Patient is unrelable historian, she is irritable as well, states diagosed as Schizoaffective disorder, several osychiatris hospitalizations states most recent was at [facility] a few months ago "they kept me 2 weeks", states she sees the psychiarist at [facility]. Reports she takes Haldol 5 mg po bid, Seroquel 200 mg po hs, Trazodone 100 mg po hs, Prozac 60 mg po daily, Wellbtirun 150 mg po daily. As per pharmacy claims patient was on Prozac 20 mg , Seroquel 200 mg , Cotgentin 1 mg daily, Trazodone 100 mg,Wellbutrin 150 mg, all medication were prescribed at different times and different providers. Physical/Sexual Abuse/Trauma History: Patient denies history of sexual, physical and verbal abuse. Vital Signs: Vital Signs - 24 hr 05/17/17 05/17/17 05/17/17 12:09 14:40 23:20 Temperature 97.4 F L 97.9 F Pulse Rate 101 H 84 Respiratory 18 97 H 18 Rate Blood Pressure 162/107 157/94 141/90 05/18/17 05/18/17 05/18/17 00:30 01:20 03:20 Temperature 97.8 F 98.0 F Pulse Rate 81 98 H Respiratory 18 18 18 Rate Blood Pressure 119/83 110/69 05/18/17 05/18/17 05/18/17 05:20 07:20 07:23 Temperature 98.6 F 98.7 F 98.7 F Pulse Rate 93 H 84 84 Respiratory 18 18 18 Rate Blood Pressure 123/81 133/84 133/84 05/18/17 05/18/17 09:20 11:20 Temperature 98.7 F 98.5 F Pulse Rate 84 80 Respiratory 18 18 Rate Blood Pressure 133/84 106/70 Allergies/Adverse Reactions: Allergies Allergy/AdvReac Type Severity Reaction Status Date / Time No Known Allergies Allergy Verified 04/09/18 13:18 Date of last physical exam: 05/17/17 Concur with the findings of this exam: Yes - Substance Abuse/Tx History Hx Alcohol Use: Yes (started at age of 16, 1 pint of liquor daily , 6pks of beer daily) Hx Substance Use: Yes Substance Use Type: Cocaine (crack 1-2 timew a week) Hx Substance Use Treatment: Yes (x2 at [facility]) Mental Status Exam - Mental Status Exam Alert and Oriented to: Time, Place, Person Cognitive Function: Impaired Patient Appearance: Well Groomed (patient has involuntary lips movements(TD)) Mood: Anxious, Irritable Affect: Mood Congruent Patient Behavior: Cooperative Speech Pattern: Clear Voice Loudness: Normal Thought Process: Goal Oriented Thought Disorder: Not Present Hallucinations: Denies Suicidal Ideation: Denies Homicidal Ideation: Denies Insight/Judgement: Impaired Sleep: Fair Appetite: Fair Muscle strength/Tone: Normal Gait/Station: Normal Psychiatric Findings - Problem List ([place] 1, 2,3) (1) Schizoaffective disorder Current Visit: Yes Status: Acute (2) Alcohol dependence Current Visit: No Status: Chronic (3) Cocaine dependence Current Visit: No Status: Chronic (4) Nicotine dependence Current Visit: No Status: Chronic - Initial Treatment Plan Initial Treatment Plan: Will restart Seroquel 200 mg po hs, Haldol 2 mg po bid, Trazodone 100 mg po hs, Prozac 20 mg po daily, will add Cogentin 1 mg daily. Will monitor progress as needed.
[2017-05-18] MEDS ORDERED: QUEtiapine FUMARATE 200 MG TABLET PO SCH (22:00)
[2017-05-18] MEDS ORDERED: traZODone HCL 50 MG TABLET (FP) PO SCH (22:00)
[2017-05-18] MEDS: INSULIN DETEMIR 100 UNITS/ML MDV SQ SCH (22:28)
[2017-05-18] MEDS: HALOPERIDOL 2 MG TABLET PO SCH (22:28)
[2017-05-18] MEDS: THIAMINE HCL 100 MG TABLET (FP) PO SCH (22:28)
[2017-05-18] MEDS ORDERED: INSULIN (NOVOLOG) ASPART 100 UNITS/ML 10ML VIAL ONE (23:05)
[2017-05-18] MEDS ORDERED: INSULIN DETEMIR 100 UNITS/ML MDV SQ ONE (23:06)
[2017-05-19] MEDS: metFORMIN HCL 500 MG TABLET (FP) PO SCH (06:47)
[2017-05-19] MEDS: INSULIN SLIDING SCALE (NOVOLOG) 1 VIAL SQ SCH (06:48)
[2017-05-19 07:12] VITALS: BP 110/74; PULSE 78; TEMP 97.7
[2017-05-19] MEDS ORDERED: FLUoxetine HCL 20 MG CAPSULE (FP) PO SCH (10:00)
[2017-05-19] MEDS ORDERED: BENZTROPINE MESYLATE 1 MG TABLET (FP) PO SCH (10:00)
[2017-05-19] MEDS: PRENATAL VITAMINS W/ FOLIC ACID TABLET (FP) PO SCH (10:08)
[2017-05-19] MEDS: NICOTINE 14 MG/24 HOURS TOPICAL PATCH TD SCH (10:08)
[2017-05-19] MEDS: HALOPERIDOL 2 MG TABLET PO SCH (10:08)
--- NOTE | 2017-05-19 13:34 | PN ---
Psychiatric Progress Note Vital Signs: Vital Signs Period Temp Pulse Resp BP Sys/Mata Pulse Ox Last 24 Hr 97.7 F-98.2 F 77-86 16-18 107-136/69-88 Date of Session: 05/19/17 Chief Complaint:: "I'm leaving." HPI: Pt. with history of alcohol, nicotine and cocaine dependence. ROS: Unremarkable. Current Medications: Active Medications Generic Name Dose Route Start Last Admin Trade Name Freq PRN Reason Stop Dose Admin Acetaminophen 650 mg 05/17/17 20:22 Tylenol - PO Q4H PRN FEVER Al Hydroxide/Mg Hydroxide 30 ml 05/17/17 20:22 Mylanta Oral Suspension - PO Q6H PRN DYSPEPSIA Benztropine Mesylate 1 mg 05/19/17 10:00 05/19/17 10:08 Cogentin - PO 1 mg DAILY FRANK Administration Eucalyptus/Menthol/Phenol/Sorbitol 1 each 05/17/17 20:22 Cepastat Lozenge - MM Q4H PRN SORE THROAT Fluoxetine HCl 20 mg 05/19/17 10:00 05/19/17 10:08 Prozac - PO 20 mg DAILY FRANK Administration Guaifenesin 10 ml 05/17/17 20:22 Robitussin Dm - PO Q6H PRN COUGH Haloperidol 2 mg 05/18/17 22:00 05/19/17 10:08 Haldol - PO 2 mg BID FRANK Administration Hydroxyzine Pamoate 50 mg 05/17/17 20:22 Vistaril - PO Q4H PRN AGITATION Ibuprofen 400 mg 05/17/17 20:22 Motrin - PO Q6H PRN Pain level 4-6 Insulin Aspart 1 vial 05/18/17 07:00 05/19/17 06:48 Novolog Vial Sliding Scale - SQ Not Given BIDAC [facility] Protocol Insulin Detemir 24 units 05/17/17 22:00 05/18/17 22:28 Levemir Vial SQ Not Given HS [facility] Loperamide HCl 4 mg 05/17/17 20:22 Imodium - PO Q6H PRN DIARRHEA Magnesium Citrate 300 ml 05/17/17 20:22 Citroma - PO Q48H PRN CONSTIPATION Magnesium Hydroxide 30 ml 05/17/17 20:22 Milk Of Magnesia - PO DAILY PRN CONSTIPATION Melatonin 5 mg 05/17/17 22:00 Melatonin PO HS PRN INSOMNIA Metformin HCl 1,000 mg 05/18/17 07:00 05/19/17 06:47 Glucophage - PO 1,000 mg BID@0700,1630 FRANK Administration Nicotine 14 mg 05/18/17 10:00 05/19/17 10:08 Nicoderm Patch - TD Not Given DAILY FRANK Nicotine Polacrilex 2 mg 05/17/17 20:22 Nicorette Gum - BC Q2H PRN NICOTINE REPLACEMENT RX Multivit/Folic Acid/Iron 1 tab 05/18/17 10:00 05/19/17 10:08 Vitamins (Sjr) - PO 1 tab DAILY FRANK Administration Pseudoephedrine/Triprolidine 1 combo 05/17/17 20:22 Actifed - PO TID PRN NASAL CONGESTION Quetiapine Fumarate 200 mg 05/18/17 22:00 05/18/17 22:28 Seroquel - PO Not Given HS FRANK Thiamine HCl 100 mg 05/17/17 22:00 05/18/17 22:28 Vitamin B1 - PO Not Given HS FRANK Trazodone HCl 100 mg 05/18/17 22:00 05/18/17 22:28 Desyrel - PO Not Given HS FRANK Medication(s) Change(s): No. Current Side Effect: No Lab tests ordered: No Lab tests reviewed: Yes Provider note:: Pt. leaving AMA from [facility] rehabilitation. Pt. [facility] [place], [place]. Pt. stated to investment underwriter, " I completed this program two months ago. I do not want to stay again." Pt. encouraged by staff and investment underwriter to complete the program but patient contines to refuse. Pt. currently denies suicidal and homicidal ideation. 30 day supply of cogentin 1mg + Prozac 20mg + haldol 2mg BID + Seroquel 200mg + Trazodone 100mg sent electronically to patient's pharmacy at [facility] at [address] [place] [address] # [phone]. Total face to face time:: 25 Mental Status Exam - Mental Status Exam Alert and Oriented to: Time, Place, Person Cognitive Function: Good Patient Appearance: Well Groomed Mood: Euthymic Affect: Mood Congruent Patient Behavior: Cooperative Speech Pattern: Appropriate Voice Loudness: Normal Thought Process: Intact Thought Disorder: Not Present Hallucinations: Denies Suicidal Ideation: Denies Homicidal Ideation: Denies Insight/Judgement: Poor Sleep: Fair Appetite: Fair Muscle strength/Tone: Normal Gait/Station: Normal Psychiatric Treatment Plan - Problem List (1) Schizoaffective disorder Initial treatment plan: .. (2) Alcohol dependence Initial treatment plan: .. (3) Cocaine dependence Initial treatment plan: .. (4) Nicotine dependence Initial treatment plan: ..
[2017-05-19 15:03] LABS: RPR REACTIVE 1:1 (NONREACTIVE)
[2017-05-19 17:37] LABS: TREPONEMA ANTIBODY REACTIVE (NONREACTIVE)
== END 2017-05-19 13:43 | disposition left against medical advice (07) | DRG 770 ==
LOC: YASAS 11:50 → Y3E 20:31
PROVIDERS: ADMIT Psychiatry & Neurology Psychiatry; ATTEND Psychiatry & Neurology Psychiatry
PROC: HZ42ZZZ Group Counseling for Substance Abuse Treatment, Cognitive-Behavioral (ICD-10-PCS; principal; 2017-05-17)
DX: F10.20 Alcohol dependence, uncomplicated (principal); F14.20 Cocaine dependence, uncomplicated; F17.210 Nicotine dependence, cigarettes, uncomplicated; F25.9 Schizoaffective disorder, unspecified; F31.9 Bipolar disorder, unspecified; B18.2 Chronic viral hepatitis C; E11.9 Type 2 diabetes mellitus without complications; G24.01 Drug induced subacute dyskinesia
CPT/HCPCS: 36415; 80053; 81003; 81015; 82962; 85027; 86593; 86780; 93005; 93010

== ENCOUNTER 2019-10-30 09:34 | Inpatient (IN) | payer OTHER ==
--- NOTE | 2019-10-30 09:55 | BHS.RME ---
Substance Use & Tx History - Substance Use History Alcohol Substance amount: 8 beers 22 oz Frequency of use: Daily Substance route: Oral Date of Last Use: 10/30/19 (started age 13, drank 4AM today) Cocaine-Crack Substance amount: $20-60 Frequency of use: Daily Substance route: Smoking Date of Last Use: 10/29/19 (started age 16) Marijuana/Hashish Substance amount: 1 puff Frequency of use: Less than 3 times per week Substance route: Smoking Date of Last Use: 10/28/19 (started age 16) - Last Treatment Date of last treatment: 05/17-05/19/17 left [facility] Treatment type: Substance Use Disorder (NADJA) Where was last treatment: Detox Physical/Psych/Mental Status - Behavior General Behavior: Increased activity (restlessness, agitation) Eye Contact: Normal - Cooperativeness Cooperativeness: Cooperative - Thinking Thought Processes: Tight, Logical, Goal Directed - Physical Health Problems Is patient presently having any pain?: No Does patient presently have any injuries (include location): No Does patient currently have a fever: No Is patient : No CIWA Nausea/Vomitin-Mild Nausea/No Vomiting Muscle Tremors: 3 Anxiety: 4-Mod. Anxious/Guarded Agitation: 3 Paroxysmal Sweats: 1-Minimal Palms Moist Orientation: 1-Uncertain about Date Tacttile Disturbances: 2-Mild Itch/Numbness/Burn Auditory Disturbances: 4-Moderate Hallucination Visual Disturbances: 1-Very Mild Sensitivity Headache: 0-None Present CIWA-Ar Total Score: 20
[2019-10-30 11:44] VITALS: BMI 24.0
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
[2019-10-30] MEDS ORDERED: Insulin (LOG) Aspart 100 UNITS/ML VIAL SQ ONE (12:28)
[2019-10-30] MEDS ORDERED: INSULIN (NOVOLOG) ASPART 100 UNITS/ML 10ML VIAL ONE (12:43)
[2019-10-30] MEDS ORDERED: MAG HYDROX/AL HYDROX/SIMETH 30 ML UNIT-DOSE CUP PO PRN (12:52)
[2019-10-30] MEDS ORDERED: ONDANSETRON *ODT* 4 MG TABLET SL PRN (12:52)
[2019-10-30] MEDS ORDERED: METHOCARBAMOL 500 MG TABLET PO PRN (12:52)
[2019-10-30] MEDS ORDERED: MAGNESIUM CITRATE 300 ML BOTTLE PO PRN (12:52)
[2019-10-30] MEDS ORDERED: MAGNESIUM HYDROX 2400MG/30ML ORAL SUSPENSION 30 ML CUP PO PRN (12:52)
[2019-10-30] MEDS ORDERED: BISMUTH SUBSALICYLATE 524 MG/30 ML UD PO PRN (12:52)
[2019-10-30] MEDS ORDERED: IBUPROFEN 400 MG TABLET (FP) PO PRN (12:52)
[2019-10-30] MEDS ORDERED: ACETAMINOPHEN 325 MG TABLET (FP) PO PRN ×2 (12:52)
[2019-10-30] MEDS ORDERED: MENTHOL/PHENOL 1 EACH UD MM PRN (12:52)
[2019-10-30] MEDS ORDERED: NICOTINE POLACRILEX 2 MG GUM BUC PRN (12:52)
[2019-10-30] MEDS: chlordiazePOXIDE HCL 25 MG CAPSULE PO PRN ×2 (13:40→22:20)
[2019-10-30] MEDS ORDERED: hydrOXYzine PAMOATE 25 MG CAPSULE (FP) PO PRN (13:43)
[2019-10-30] MEDS ORDERED: hydrOXYzine PAMOATE 25 MG CAPSULE (FP) PO SCH (14:00)
--- NOTE | 2019-10-30 14:57 | PN ---
[facility] Progress Note Note: Patient was approached at bedside for psychiatric evaluation. She was found in bed sleeping, snoring. Please re consult when patient is able to be interviewed
--- OUTSIDE RECORDS SUMMARY | 2019-10-30 15:26 | XMS ---
:1970 Author Organization [facility] Support Name Relationship Address Phone UE Unavailable Unavailable Unavailable SCOTT DELEON SISTER [address] [place] [id number] JONA ZIEGLER [address] [place] [address] Re-disclosure Warning The records that you are about to access may contain information from federally- assisted alcohol or drug abuse programs. If such information is present, then the following federally mandated warning applies: This information has been disclosed to you from records protected by federal confidentiality rules (42 CFR part 2). The federal rules prohibit you from making any further disclosure of this information unless further disclosure is expressly permitted by the written consent of the person to whom it pertains or as otherwise permitted by 42 CFR part 2. A general authorization for the release of medical or other information is NOT sufficient for this purpose. The Federal rules restrict any use of the information to criminally investigate or prosecute any alcohol or drug abuse patient.The records that you are about to access may contain highly sensitive health information, the redisclosure of which is protected by Article 27-F of the [facility] Public Health law. If you continue you may haveaccess to information: Regarding HIV / AIDS; Provided by facilities licensed or operated by the [facility] Office of Mental Health; or Provided by the [facility] Office for People With Developmental Disabilities. If such information is present, then the following [facility] mandated warning applies: This information has been disclosed to you from confidential records which are protected by state law. State law prohibits you from making any further disclosure of this information without the specific written consent of the person to whom it pertains, or as otherwise permitted by law. Any unauthorized further disclosure in violation of state law may result in a fine or prison sentence or both. A general authorization for the release of medical or other information is NOT sufficient authorization for further disclosure. Insurance Providers Payer name Policy type Policy ID Covered Covered libertarian's Policy P chidi / Coverage libertarian ID relationship to [employer] Inf ormation type nunez MEDICAID [id number] SP [id number] Results ID Date Data Source [id number] 09/28/2019 12:00:00 AM EDT [place] Name Value Range Interpretation Code Description Data Donna rce(s) Supporting Document(s ) SARS-CoV2 [facility] Rapid PCR This lab was ordered by ANITHA fink reported by [facility]. Procedure
[2019-10-30] MEDS: NICOTINE 14 MG/24 HOURS TOPICAL PATCH TD SCH (15:49)
[2019-10-30] MEDS ORDERED: INSULIN SLIDING SCALE (NOVOLOG) 1 VIAL SQ ONE ×2 (17:31→22:59)
[2019-10-30] MEDS: INSULIN SLIDING SCALE (NOVOLOG) 1 VIAL SQ SCH ×2 (17:38→22:21)
[2019-10-30] MEDS: metFORMIN HCL 500 MG TABLET (FP) PO SCH (17:38)
[2019-10-30] MEDS: chlordiazePOXIDE HCL 25 MG CAPSULE PO SCH ×2 (18:25→23:23)
[2019-10-30] MEDS: INSULIN (LEVEMIR) 100 UNITS/ML UNITS SQ SCH (22:21)
[2019-10-30] MEDS: MELATONIN 5 MG TABLETS PO SCH (22:21)
[2019-10-30] MEDS: THIAMINE HCL 100 MG TABLET (FP) PO SCH (23:21)
[2019-10-31] MEDS: INSULIN SLIDING SCALE (NOVOLOG) 1 VIAL SQ SCH ×4 (06:58→22:48)
[2019-10-31] MEDS: chlordiazePOXIDE HCL 25 MG CAPSULE PO SCH ×3 (07:20→18:03)
[2019-10-31] MEDS: metFORMIN HCL 500 MG TABLET (FP) PO SCH ×2 (07:21→17:10)
--- NOTE | 2019-10-31 09:57 | CONSULT ---
[facility] Psychiatric Consult - Data Date of interview: 10/31/19 Admission source: Self-referred Identifying data: Ms Bustamante is a 49 years old Black female, unemployed receiving SSI, living in a [facility] house seeking detox treatment for alcohol, cocaine and cannabis Substance Abuse History: Reports history of alcohol, crack cocaine and marijuana use. Refer to addiction counselor's summary for further information Medical History: Significant for type 2 diabetes mellitus and hepatitis C. Smokes 10 cigarettes daily Psychiatric History: Patient is known for three previous admissions to this facility. She is an unrelable, irritable historian. She reports that she was diagnosed with Bipolar Disorder and PTSD 15 years ago while in [place]. Reports that 3 years ago, her diagnosis of Bipolar was revised to Schizoaffective Disorder. Reports multiple previous psychiatric hospitalizations at various institutions including [facility], [facility] and [facility]. Reports attending [facility] and she said that last month her social science research assistant made her talk to a doctor on the phone in order to get refills of Trazadone 50 mg/hs and Seroquel 100 mg/hs. This is confirmed by [phone] [facility], [facility] in [place], [place] . According to pharmacy staff, scripts for these 2 medications were filled on 09/13/19. In the past, she has been on Prozac, Wellbutrin, Haldol, Cogentin as reported and verified by Dr Mercado during an admission to this facility In June 2017. Previously she received outpatient psychiaric treatment at [facility]. Reportedly, she has a remote history of suicidal attempt via overdose at age 16. At present, denies experiencing psychotic, manic or depressive symptoms, S/H ideations. However, She is very irritable and reports sleeping poorly Physical/Sexual Abuse/Trauma History: Patient denies history of sexual, physical and verbal abuse. Additional Comment: Patient denies history of sexual, physical and verbal abuse. Mental Status Exam - Mental Status Exam Alert and Oriented to: Time, Place, Person Cognitive Function: Fair Patient Appearance: Well Groomed Mood: Irritable Affect: Appropriate Patient Behavior: Cooperative Speech Pattern: Clear Voice Loudness: Normal Thought Process: Intact, Goal Oriented Hallucinations: Denies Suicidal Ideation: Denies Homicidal Ideation: Denies Insight/Judgement: Poor Sleep: Poorly Appetite: Good Muscle strength/Tone: Normal Psychiatric Findings - Problem List ([place] 1, 2,3) (1) Schizoaffective disorder Current Visit: No Status: Chronic Comment: 1. Psychiatry consultation (2) Bipolar disorder Current Visit: Yes Status: Ruled-out Qualifiers: Active/Remission status: currently active Comment: 1. Psychiatry consultation, multiple meds (3) PTSD (post-traumatic stress disorder) Current Visit: Yes Status: Chronic (4) Substance induced mood disorder Current Visit: No Status: Acute (5) Substance-induced sleep disorder Current Visit: Yes Status: Acute (6) Alcohol dependence with uncomplicated withdrawal Current Visit: Yes Status: Acute Comment: 1. Admit, detox, alcohol withdrawal protocol 2. Librium 3. Routine labs 4. Substance use education (7) Cocaine dependence, uncomplicated Current Visit: Yes Status: Acute Comment: 1. Substance use disorder education (8) Cannabis dependence, uncomplicated Current Visit: Yes Status: Acute Comment: 1. Substance use disorder education (9) Nicotine dependence Current Visit: No Status: Chronic Comment: 1. Nicotine replacement therapy (10) Diabetes Current Visit: Yes Status: Chronic Comment: 1. glucose checked in [facility], reading High 2. will give regular insulin now, 12 units 3. check glucose ACHS 4. resume metformin 5. resume hs long acting insulin (11) Hepatitis C Current Visit: No Status: Chronic - Initial Treatment Plan Initial Treatment Plan: 1) Resume Seroquel 100 mg po HS and Trazadone 50 mg po HS. 2) Continue inpatient detoxification
[2019-10-31 10:19] LABS: HEMATOCRIT 36.3 % (32.4-45.2); HEMOGLOBIN 11.4 GM/dL (10.7-15.3); MCH 27.2 pg (25.7-33.7); MCHC 31.5 g/dl (32.0-36.0); MEAN CELL VOLUME 86.2 fl (80-96); MEAN PLT VOLUME 9.5 fl (7.5-11.1); PLATELET COUNT 266 K/MM3 (134-434); WHITE BLOOD COUNT 7.7 K/mm3 (4.0-10.0)
[2019-10-31 10:29] LABS: ALBUMIN 2.5 g/dl (3.4-5.0); BLOOD UREA NITROGEN 12.2 mg/dL (7-18); CALCIUM 8.7 mg/dL (8.5-10.1); CREATININE 0.7 mg/dL (0.55-1.3); POTASSIUM 4.1 mmol/L (3.5-5.1); TOT PROT 5.7 g/dl (6.4-8.2)
[2019-10-31 10:32] LABS: BILIRUBIN,TOTAL 0.2 mg/dL (0.2-1)
[2019-10-31] MEDS: NICOTINE 14 MG/24 HOURS TOPICAL PATCH TD SCH (10:37)
[2019-10-31] MEDS: PRENATAL VITAMINS W/ FOLIC ACID TABLET (FP) PO SCH (11:48)
--- NOTE | 2019-10-31 12:52 | PN ---
[facility] CIWA - CIWA Score Nausea/Vomitin-No Nausea/No Vomiting Muscle Tremors: 3 Anxiety: 2 Agitation: 3 Paroxysmal Sweats: 2 Orientation: 0-Oriented Tacttile Disturbances: 0-None Auditory Disturbances: 0-None Visual Disturbances: 0-None Headache: 0-None Present CIWA-Ar Total Score: 10 S Progress Note (SOAP) Subjective: sweats tired groggy interrupted sleep Objective: 10/31/19 12:48 Vital Signs Temperature 98.1 F 10/31/19 08:40 Pulse Rate 98 H 10/31/19 08:40 Respiratory Rate 16 10/31/19 08:40 Blood Pressure 118/64 10/31/19 08:40 O2 Sat by Pulse Oximetry (%) 100 10/31/19 06:55 Laboratory Tests 10/30/19 10/30/19 10/30/19 11:44 12:25 14:00 WBC RBC Hgb Hct MCV MCH MCHC RDW Plt Count MPV Sodium Potassium Chloride Carbon Dioxide Anion Gap BUN Creatinine Est GFR (CKD-EPI)AfAm Est GFR (CKD-EPI)NonAf POC Glucometer > 600 Random Glucose Calcium Total Bilirubin AST ALT Alkaline Phosphatase Total Protein Albumin POC Urine HCG, Qual Negative COVID-19 (MATTIE) Not detected 10/30/19 10/30/19 10/31/19 16:46 21:41 06:50 WBC RBC Hgb Hct MCV MCH MCHC RDW Plt Count MPV Sodium Potassium Chloride Carbon Dioxide Anion Gap BUN Creatinine Est GFR (CKD-EPI)AfAm Est GFR (CKD-EPI)NonAf POC Glucometer [phone] Random Glucose Calcium Total Bilirubin AST ALT Alkaline Phosphatase Total Protein Albumin POC Urine HCG, Qual COVID-19 (MATTIE) 10/31/19 10/31/19 08:00 08:00 WBC 7.7 RBC 4.20 Hgb 11.4 Hct 36.3 MCV 86.2 MCH 27.2 MCHC 31.5 L RDW 17.0 H Plt Count 266 D MPV 9.5 D Sodium 136 Potassium 4.1 Chloride 100 Carbon Dioxide 30 Anion Gap 7 L BUN 12.2 Creatinine 0.7 Est GFR (CKD-EPI)AfAm 117.91 Est GFR (CKD-EPI)NonAf 101.74 POC Glucometer Random Glucose 230 H Calcium 8.7 Total Bilirubin 0.2 AST 132 H ALT 84 H Alkaline Phosphatase 108 Total Protein 5.7 L Albumin 2.5 L POC Urine HCG, Qual COVID-19 (MATTIE) aaox3 groggy but responsive lying in bed no acute distress labs noted elevated ast/alt noted encourage fluids glucose is being monitored and insulin and metformin ordered Assessment: 10/31/19 12:51 withdrawals Plan: hold 10am librium continue detox later encourage fluids
[2019-10-31] MEDS: traZODone HCL 50 MG TABLET (FP) PO SCH (22:39)
[2019-10-31] MEDS: QUEtiapine FUMARATE 100 MG TABLET (FP) PO SCH (22:39)
[2019-10-31] MEDS: THIAMINE HCL 100 MG TABLET (FP) PO SCH (22:39)
[2019-10-31] MEDS: chlordiazePOXIDE HCL 25 MG CAPSULE PO PRN (22:39)
[2019-10-31] MEDS ORDERED: INSULIN SLIDING SCALE (NOVOLOG) 1 VIAL SQ ONE (22:46)
[2019-10-31] MEDS: INSULIN (LEVEMIR) 100 UNITS/ML UNITS SQ SCH (22:47)
[2019-10-31] MEDS: MELATONIN 5 MG TABLETS PO SCH (22:47)
[2019-11-01] MEDS: chlordiazePOXIDE HCL 25 MG CAPSULE PO SCH ×4 (00:35→10:49)
[2019-11-01] MEDS: metFORMIN HCL 500 MG TABLET (FP) PO SCH ×2 (07:08→17:59)
[2019-11-01] MEDS: INSULIN SLIDING SCALE (NOVOLOG) 1 VIAL SQ SCH ×4 (08:10→23:52)
[2019-11-01] MEDS ORDERED: INSULIN SLIDING SCALE (NOVOLOG) 1 VIAL SQ ONE (08:12)
[2019-11-01] MEDS: PRENATAL VITAMINS W/ FOLIC ACID TABLET (FP) PO SCH (10:50)
[2019-11-01] MEDS: NICOTINE 14 MG/24 HOURS TOPICAL PATCH TD SCH (10:50)
--- NOTE | 2019-11-01 13:36 | PN ---
[facility] CIWA - CIWA Score Nausea/Vomitin-No Nausea/No Vomiting Muscle Tremors: 2 Anxiety: 1-Mildly Anxious Agitation: 2 Paroxysmal Sweats: 2 Orientation: 0-Oriented Tacttile Disturbances: 0-None Auditory Disturbances: 0-None Visual Disturbances: 0-None Headache: 0-None Present CIWA-Ar Total Score: 7 S Progress Note (SOAP) Subjective: tired sweats interrupted sleep Objective: 11/01/19 13:34 Vital Signs Temperature 97.1 F L 11/01/19 08:48 Pulse Rate 88 11/01/19 08:48 Respiratory Rate 16 11/01/19 08:48 Blood Pressure 119/60 11/01/19 08:48 O2 Sat by Pulse Oximetry (%) 97 11/01/19 08:48 Laboratory Tests 10/30/19 10/30/19 10/30/19 11:44 12:25 14:00 WBC RBC Hgb Hct MCV MCH MCHC RDW Plt Count MPV Sodium Potassium Chloride Carbon Dioxide Anion Gap BUN Creatinine Est GFR (CKD-EPI)AfAm Est GFR (CKD-EPI)NonAf POC Glucometer > 600 Random Glucose Calcium Total Bilirubin AST ALT Alkaline Phosphatase Total Protein Albumin POC Urine HCG, Qual Negative Syphilis Serology RPR Titer COVID-19 (MATTIE) Not detected 10/30/19 10/30/19 10/31/19 16:46 21:41 06:50 WBC RBC Hgb Hct MCV MCH MCHC RDW Plt Count MPV Sodium Potassium Chloride Carbon Dioxide Anion Gap BUN Creatinine Est GFR (CKD-EPI)AfAm Est GFR (CKD-EPI)NonAf POC Glucometer [phone] Random Glucose Calcium Total Bilirubin AST ALT Alkaline Phosphatase Total Protein Albumin POC Urine HCG, Qual Syphilis Serology RPR Titer COVID-19 (MATTIE) 10/31/19 10/31/19 10/31/19 08:00 08:00 08:00 WBC 7.7 RBC 4.20 Hgb 11.4 Hct 36.3 MCV 86.2 MCH 27.2 MCHC 31.5 L RDW 17.0 H Plt Count 266 D MPV 9.5 D Sodium 136 Potassium 4.1 Chloride 100 Carbon Dioxide 30 Anion Gap 7 L BUN 12.2 Creatinine 0.7 Est GFR (CKD-EPI)AfAm 117.91 Est GFR (CKD-EPI)NonAf 101.74 POC Glucometer Random Glucose 230 H Calcium 8.7 Total Bilirubin 0.2 AST 132 H ALT 84 H Alkaline Phosphatase 108 Total Protein 5.7 L Albumin 2.5 L POC Urine HCG, Qual Syphilis Serology Reactive A* RPR Titer COVID-19 (MATTIE) 10/31/19 10/31/19 10/31/19 08:00 17:05 22:43 WBC RBC Hgb Hct MCV MCH MCHC RDW Plt Count MPV Sodium Potassium Chloride Carbon Dioxide Anion Gap BUN Creatinine Est GFR (CKD-EPI)AfAm Est GFR (CKD-EPI)NonAf POC Glucometer 562 422 Random Glucose Calcium Total Bilirubin AST ALT Alkaline Phosphatase Total Protein Albumin POC Urine HCG, Qual Syphilis Serology RPR Titer Reactive 1:1 H COVID-19 (MATTIE) 11/01/19 06:54 WBC RBC Hgb Hct MCV MCH MCHC RDW Plt Count MPV Sodium Potassium Chloride Carbon Dioxide Anion Gap BUN Creatinine Est GFR (CKD-EPI)AfAm Est GFR (CKD-EPI)NonAf POC Glucometer 305 Random Glucose Calcium Total Bilirubin AST ALT Alkaline Phosphatase Total Protein Albumin POC Urine HCG, Qual Syphilis Serology RPR Titer COVID-19 (MATTIE) labs noted aaox3 lying in bed no acute distress Assessment: 11/01/19 13:36 withdrawals Plan: continue detox increase fluids
[2019-11-01] MEDS: chlordiazePOXIDE 5 MG CAPSULE PO SCH ×3 (14:21→23:46)
[2019-11-01] MEDS: THIAMINE HCL 100 MG TABLET (FP) PO SCH (23:46)
[2019-11-01] MEDS: traZODone HCL 50 MG TABLET (FP) PO SCH (23:46)
[2019-11-01] MEDS: INSULIN (LEVEMIR) 100 UNITS/ML UNITS SQ SCH (23:51)
[2019-11-02] MEDS ORDERED: chlordiazePOXIDE HCL 10 MG CAPSULE PO PRN
[2019-11-02] MEDS: QUEtiapine FUMARATE 100 MG TABLET (FP) PO SCH (00:51)
[2019-11-02] MEDS: MELATONIN 5 MG TABLETS PO SCH (00:52)
[2019-11-02] MEDS ORDERED: INSULIN SLIDING SCALE (NOVOLOG) 1 VIAL SQ ONE (01:11)
[2019-11-02] MEDS ORDERED: chlordiazePOXIDE HCL 10 MG CAPSULE PO SCH (05:00)
[2019-11-02 08:07] VITALS: TEMP 97.5
[2019-11-02] MEDS: metFORMIN HCL 500 MG TABLET (FP) PO SCH (08:19)
[2019-11-02] MEDS: INSULIN SLIDING SCALE (NOVOLOG) 1 VIAL SQ SCH (08:19)
[2019-11-02 10:55] VITALS: BP 145/76; PULSE 83
--- NOTE | 2019-11-02 14:37 | DS ---
[facility] Detox Discharge Summary Admission Date: 10/30/19 Discharge Date: 11/02/19 - History Present History: Alcohol Dependence, Cannabis Dependence, Cocaine Dependence - Physical Exam Results Vital Signs: Vital Signs Temperature 97.5 F L 11/02/19 09:22 Pulse Rate 83 11/02/19 09:22 Respiratory Rate 18 11/02/19 09:22 Blood Pressure 145/76 11/02/19 09:22 O2 Sat by Pulse Oximetry (%) 98 11/02/19 09:22 Pertinent Admission Physical Exam Findings: Vital Signs Temperature 97.5 F L 11/02/19 09:22 Pulse Rate 83 11/02/19 09:22 Respiratory Rate 18 11/02/19 09:22 Blood Pressure 145/76 11/02/19 09:22 O2 Sat by Pulse Oximetry (%) 98 11/02/19 09:22 Laboratory Tests 10/30/19 10/30/19 10/30/19 11:44 12:25 14:00 WBC RBC Hgb Hct MCV MCH MCHC RDW Plt Count MPV Sodium Potassium Chloride Carbon Dioxide Anion Gap BUN Creatinine Est GFR (CKD-EPI)AfAm Est GFR (CKD-EPI)NonAf POC Glucometer > 600 Random Glucose Calcium Total Bilirubin AST ALT Alkaline Phosphatase Total Protein Albumin POC Urine HCG, Qual Negative Syphilis Serology RPR Titer COVID-19 (MATTIE) Not detected 10/30/19 10/30/19 10/31/19 16:46 21:41 06:50 WBC RBC Hgb Hct MCV MCH MCHC RDW Plt Count MPV Sodium Potassium Chloride Carbon Dioxide Anion Gap BUN Creatinine Est GFR (CKD-EPI)AfAm Est GFR (CKD-EPI)NonAf POC Glucometer [phone] Random Glucose Calcium Total Bilirubin AST ALT Alkaline Phosphatase Total Protein Albumin POC Urine HCG, Qual Syphilis Serology RPR Titer COVID-19 (MATTIE) 10/31/19 10/31/19 10/31/19 08:00 08:00 08:00 WBC 7.7 RBC 4.20 Hgb 11.4 Hct 36.3 MCV 86.2 MCH 27.2 MCHC 31.5 L RDW 17.0 H Plt Count 266 D MPV 9.5 D Sodium 136 Potassium 4.1 Chloride 100 Carbon Dioxide 30 Anion Gap 7 L BUN 12.2 Creatinine 0.7 Est GFR (CKD-EPI)AfAm 117.91 Est GFR (CKD-EPI)NonAf 101.74 POC Glucometer Random Glucose 230 H Calcium 8.7 Total Bilirubin 0.2 AST 132 H ALT 84 H Alkaline Phosphatase 108 Total Protein 5.7 L Albumin 2.5 L POC Urine HCG, Qual Syphilis Serology Reactive A* RPR Titer COVID-19 (MATTIE) 10/31/19 10/31/19 10/31/19 08:00 17:05 22:43 WBC RBC Hgb Hct MCV MCH MCHC RDW Plt Count MPV Sodium Potassium Chloride Carbon Dioxide Anion Gap BUN Creatinine Est GFR (CKD-EPI)AfAm Est GFR (CKD-EPI)NonAf POC Glucometer [phone] Random Glucose Calcium Total Bilirubin AST ALT Alkaline Phosphatase Total Protein Albumin POC Urine HCG, Qual Syphilis Serology RPR Titer Reactive 1:1 H COVID-19 (MATTIE) 11/01/19 11/01/19 11/01/19 06:54 17:08 23:44 WBC RBC Hgb Hct MCV MCH MCHC RDW Plt Count MPV Sodium Potassium Chloride Carbon Dioxide Anion Gap BUN Creatinine Est GFR (CKD-EPI)AfAm Est GFR (CKD-EPI)NonAf POC Glucometer [phone] Random Glucose Calcium Total Bilirubin AST ALT Alkaline Phosphatase Total Protein Albumin POC Urine HCG, Qual Syphilis Serology RPR Titer COVID-19 (MATTIE) aaox3 ambulating no acute distress - Treatment Hospital Course: Detox Protocol Followed, Detoxed Safely, Responded well, Discharged Condition Good, Rehab Referral Accepted - Medication Discharge Medications: Ambulatory Orders Benztropine Mesylate [Cogentin -] 1 mg PO DAILY #30 tablet 05/19/17 Fluoxetine HCl [Prozac -] 20 mg PO DAILY #30 capsule 05/19/17 Insulin Glargine,Hum.rec.anlog [Lantus] 24 unit SQ HS 30 Days #1 vial 05/19/17 metFORMIN HCL [Glucophage -] 1,000 mg PO BID@0700,1630 30 Days #60 tablet 05/19/17 Quetiapine Fumarate [Seroquel -] 100 mg PO HS 10/30/19 traZODone HCL [Desyrel -] 50 mg PO HS 10/30/19 - Diagnosis (1) Alcohol dependence with uncomplicated withdrawal Status: Acute (2) Cannabis dependence, uncomplicated Status: Acute (3) Cocaine dependence, uncomplicated Status: Acute (4) Substance induced mood disorder Status: Acute (5) Substance-induced sleep disorder Status: Acute (6) Alcohol dependence Status: Chronic (7) Cannabis dependence Status: Chronic (8) Cocaine dependence Status: Chronic (9) Diabetes Status: Chronic (10) Hepatitis C Status: Chronic (11) Nicotine dependence Status: Chronic (12) PTSD (post-traumatic stress disorder) Status: Chronic (13) Schizoaffective disorder Status: Chronic (14) Bipolar disorder Status: Ruled-out Qualifiers: Active/Remission status: currently active - AMA Did Patient Leave Against Medical Advice: No
[2019-11-03] MEDS ORDERED: chlordiazePOXIDE HCL 10 MG CAPSULE PO SCH (05:00)
[2019-11-04] MEDS ORDERED: chlordiazePOXIDE HCL 10 MG CAPSULE PO ONE (05:00)
== END 2019-11-02 12:20 | disposition home or self-care (01) | DRG 774 ==
LOC: YASAS 09:34 → Y6N 12:58
PROVIDERS: ADMIT Allergy & Immunology; ATTEND Allergy & Immunology
PROC: HZ2ZZZZ Detoxification Services for Substance Abuse Treatment (ICD-10-PCS; principal; 2019-10-30)
DX: F10.230 Alcohol dependence with withdrawal, uncomplicated (principal); F14.20 Cocaine dependence, uncomplicated; F12.20 Cannabis dependence, uncomplicated; F17.210 Nicotine dependence, cigarettes, uncomplicated; F19.282 Other psychoactive substance dependence with psychoactive substance-induced sleep disorder; F19.24 Other psychoactive substance dependence with psychoactive substance-induced mood disorder; F25.9 Schizoaffective disorder, unspecified; F43.10 Post-traumatic stress disorder, unspecified; E11.9 Type 2 diabetes mellitus without complications; Z79.4 Long term (current) use of insulin; B18.2 Chronic viral hepatitis C; R74.0 Nonspecific elevation of levels of transaminase and lactic acid dehydrogenase [LDH]; Z56.0 Unemployment, unspecified
CPT/HCPCS: 36415; 80053; 81025; 82962; 85027; 86593; 86780; U0003

== ENCOUNTER 2023-07-12 11:14 | Inpatient (IN) | payer OTHER ==
[2023-07-12 11:54] VITALS: BMI 20.9
[2023-07-12] MEDS ORDERED: POLYETHYLENE GLYCOL (HEALTHYLAX) 3350 17 GM PACKET PO PRN (12:10)
[2023-07-12] MEDS ORDERED: NICOTINE POLACRILEX 2 MG LOZENGE BC PRN (12:10)
[2023-07-12] MEDS ORDERED: BISMUTH SUBSALICYLATE 262 MG/15 ML BTL PO PRN (12:10)
[2023-07-12] MEDS ORDERED: BENZONATATE 200 MG CAPSULE PO PRN (12:10)
[2023-07-12] MEDS ORDERED: DICYCLOMINE HCL 10 MG CAPSULE PO PRN (12:10)
[2023-07-12] MEDS ORDERED: MAG HYDROX/AL HYDROX/SIMETH 30 ML UNIT-DOSE CUP PO PRN (12:10)
[2023-07-12] MEDS ORDERED: LOPERAMIDE HCL 2 MG CAPSULE PO PRN (12:10)
[2023-07-12] MEDS ORDERED: guaiFENesin 600 MG TABLET.ER (FP) PO PRN (12:10)
[2023-07-12] MEDS ORDERED: BENZOCAINE/MENTHOL (CHLORASEPTIC ) LOZENGE MM PRN (12:10)
[2023-07-12] MEDS ORDERED: P-EPHED 60MG/TRIPROLIDI 2.5MG TABLET PO PRN (12:10)
[2023-07-12] MEDS ORDERED: METHOCARBAMOL 500 MG TABLET PO PRN (12:10)
[2023-07-12] MEDS ORDERED: MAGNESIUM HYDROX 2400MG/30ML ORAL SUSPENSION 30 ML CUP PO PRN (12:10)
[2023-07-12] MEDS ORDERED: IBUPROFEN 400 MG TABLET (FP) PO PRN (12:10)
[2023-07-12] MEDS ORDERED: NICOTINE POLACRILEX 2 MG GUM BUC PRN (12:10)
[2023-07-12] MEDS: IBUPROFEN 600 MG TABLET (FP) PO PRN (14:16)
[2023-07-12] MEDS: METHYL SALICYLATE/MENTHOL OINT 30 GM TUBE TP SCH (14:16)
[2023-07-12] MEDS: hydrOXYzine PAMOATE 25 MG CAPSULE (FP) PO PRN (14:20)
[2023-07-12] MEDS: chlordiazePOXIDE HCL 25 MG CAPSULE PO PRN (14:20)
[2023-07-12] MEDS: METOPROLOL TARTRATE 25 MG TABLET (FP) PO ONE (14:49)
[2023-07-12] MEDS: metFORMIN HCL 500 MG TABLET (FP) PO SCH (17:36)
[2023-07-12] MEDS: chlordiazePOXIDE HCL 25 MG CAPSULE PO SCH (17:37)
[2023-07-12] MEDS: INSULIN ASPART SLIDING SCALE (NOVOLOG) 1 VIAL SQ SCH (17:41)
[2023-07-12] MEDS ORDERED: PATIENT'S OWN MEDICATION (NON-FORMULARY) (Insulin Glargine,Hum.Rec.Anlog [Lantus] 100 UNIT SQ SCH (22:00)
[2023-07-12] MEDS ORDERED: MELATONIN 5 MG TABLETS PO SCH (22:00)
[2023-07-12] MEDS: traZODone HCL 50 MG TABLET (FP) PO SCH (22:59)
[2023-07-12] MEDS: METOPROLOL TARTRATE 25 MG TABLET (FP) PO SCH (23:00)
[2023-07-12] MEDS: THIAMINE 100 MG TABLET PO SCH (23:00)
[2023-07-12] MEDS: QUEtiapine FUMARATE 100 MG TABLET (FP) PO SCH (23:01)
[2023-07-13] MEDS: INSULIN (LEVEMIR) 100 UNITS/ML UNITS SQ SCH (00:28)
[2023-07-13] MEDS: ESCITALOPRAM OXALATE 10 MG TABLET PO SCH (10:31)
[2023-07-13] MEDS: PRENATAL VITAMINS W/ FOLIC ACID TABLET (FP) PO SCH (10:31)
[2023-07-13 11:49] LABS: HEMATOCRIT 35.9 % (32.4-45.2); HEMOGLOBIN 11.7 GM/dL (10.7-15.3); MCH 27.9 pg (25.7-33.7); MCHC 32.5 g/dl (32.0-36.0); MEAN CELL VOLUME 85.8 fl (80-96); MEAN PLT VOLUME 9.2 fl (7.5-11.1); PLATELET COUNT 363 10^3/uL (134-434); RBC 4.19 M/mm3 (3.60-5.2); RDW 18.4 % (11.6-15.6); WHITE BLOOD COUNT 6.5 K/mm3 (4.0-10.0)
[2023-07-13 11:50] LABS: POTASSIUM 3.7 mmol/L (3.5-5.1)
[2023-07-13 11:54] LABS: ALBUMIN 1.4 g/dl (3.4-5.0); BLOOD UREA NITROGEN 16.7 mg/dL (7-18)
[2023-07-13 11:57] LABS: CREATININE 0.6 mg/dL (0.55-1.3)
[2023-07-13 11:59] LABS: BILIRUBIN,TOTAL 0.4 mg/dL (0.2-1); TOT PROT 4.5 g/dl (6.4-8.2)
[2023-07-13] MEDS: amLODIPine BESYLATE 10 MG TABLET (FP) PO ONE (17:40)
[2023-07-13] MEDS ORDERED: INSULIN (NOVOLOG) ASPART 100 UNITS/ML 10ML VIAL ONE (17:43)
[2023-07-14] MEDS: chlordiazePOXIDE HCL 25 MG CAPSULE PO SCH (05:50)
[2023-07-14] MEDS: ONDANSETRON *ODT* 4 MG TABLET SL PRN (06:22)
[2023-07-14] MEDS: amLODIPine BESYLATE 10 MG TABLET (FP) PO SCH (09:37)
[2023-07-14] MEDS: HYDROCHLOROTHIAZIDE 25 MG TABLET (FP) PO SCH (13:40)
[2023-07-14] MEDS: cloNIDine HCL 0.1 MG TABLET PO ONE (13:40)
[2023-07-14] MEDS ORDERED: diazePAM 5 MG TABLET PO PRN (14:28)
[2023-07-14] MEDS ORDERED: INSULIN (NOVOLOG) ASPART 100 UNITS/ML 10ML VIAL ONE (17:10)
[2023-07-14] MEDS: diazePAM 5 MG TABLET PO SCH (17:28)
[2023-07-15] MEDS ORDERED: chlordiazePOXIDE HCL 10 MG CAPSULE PO PRN
[2023-07-15] MEDS ORDERED: chlordiazePOXIDE HCL 10 MG CAPSULE PO SCH (05:00)
[2023-07-15] MEDS: diazePAM 5 MG TABLET PO SCH ×2 (05:48→22:51)
[2023-07-15] MEDS ORDERED: INSULIN (NOVOLOG) ASPART 100 UNITS/ML 10ML VIAL ONE (17:45)
[2023-07-16] MEDS ORDERED: chlordiazePOXIDE HCL 10 MG CAPSULE PO SCH (05:00)
[2023-07-16] MEDS: diazePAM 5 MG TABLET PO SCH (05:56)
[2023-07-16] MEDS ORDERED: INSULIN (NOVOLOG) ASPART 100 UNITS/ML 10ML VIAL ONE (17:02)
[2023-07-17] MEDS: ACETAMINOPHEN 325 MG TABLET (FP) PO PRN (04:23)
[2023-07-17] MEDS ORDERED: chlordiazePOXIDE HCL 10 MG CAPSULE PO ONE (05:00)
[2023-07-17] MEDS: diazePAM 5 MG TABLET PO ONE (05:59)
[2023-07-17] MEDS: propRANOLol HCL 10 MG TABLET PO ONE (18:41)
[2023-07-18 05:18] VITALS: TEMP 98.9
[2023-07-18] MEDS ORDERED: INSULIN (NOVOLOG) ASPART 100 UNITS/ML 10ML VIAL ONE (06:31)
[2023-07-18 09:45] VITALS: BP 85/56; PULSE 78; RESP 16
== END 2023-07-18 13:30 | disposition other institution (70) | DRG 774 ==
LOC: YASAS 11:14 → Y6N 12:40
PROVIDERS: ADMIT Allergy & Immunology; ATTEND Surgery
PROC: HZ2ZZZZ Detoxification Services for Substance Abuse Treatment (ICD-10-PCS; principal; 2023-07-12)
DX: F10.230 Alcohol dependence with withdrawal, uncomplicated (principal); F14.20 Cocaine dependence, uncomplicated; F12.20 Cannabis dependence, uncomplicated; F17.210 Nicotine dependence, cigarettes, uncomplicated; F25.1 Schizoaffective disorder, depressive type; I10 Essential (primary) hypertension; E11.9 Type 2 diabetes mellitus without complications; Z79.4 Long term (current) use of insulin; B18.2 Chronic viral hepatitis C; R76.8 Other specified abnormal immunological findings in serum
CPT/HCPCS: 36415; 80053; 80305; 81025; 82962; 83036; 85027; 86593; 86780; 93005; 93010; Q0162

== ENCOUNTER 2023-07-18 13:14 | Inpatient (IN) | payer OTHER ==
[2023-07-18] MEDS ORDERED: BENZONATATE 200 MG CAPSULE PO PRN (14:46)
[2023-07-18] MEDS ORDERED: MAG HYDROX/AL HYDROX/SIMETH 30 ML UNIT-DOSE CUP PO PRN (14:46)
[2023-07-18] MEDS ORDERED: NALOXONE (NARCAN) HCL 4 MG/0.1 ML SPRAY NS PRN (14:46)
[2023-07-18] MEDS ORDERED: NALOXONE HCL 0.4 MG/ML VIAL IM PRN (14:46)
[2023-07-18] MEDS ORDERED: POLYETHYLENE GLYCOL (HEALTHYLAX) 3350 17 GM PACKET PO PRN (14:46)
[2023-07-18] MEDS ORDERED: guaiFENesin 600 MG TABLET.ER (FP) PO PRN (14:46)
[2023-07-18] MEDS ORDERED: LOPERAMIDE HCL 2 MG CAPSULE PO PRN (14:46)
[2023-07-18] MEDS ORDERED: BENZOCAINE/MENTHOL (CHLORASEPTIC ) LOZENGE MM PRN (14:46)
[2023-07-18] MEDS ORDERED: IBUPROFEN 400 MG TABLET (FP) PO PRN (14:46)
[2023-07-18] MEDS ORDERED: MAGNESIUM HYDROX 2400MG/30ML ORAL SUSPENSION 30 ML CUP PO PRN (14:46)
[2023-07-18] MEDS: metFORMIN HCL 500 MG TABLET (FP) PO SCH (18:07)
[2023-07-18] MEDS: hydrOXYzine PAMOATE 25 MG CAPSULE (FP) PO PRN (18:21)
[2023-07-18] MEDS: THIAMINE 100 MG TABLET PO SCH (21:29)
[2023-07-18] MEDS: QUEtiapine FUMARATE 100 MG TABLET (FP) PO SCH (21:30)
[2023-07-18] MEDS: traZODone HCL 50 MG TABLET (FP) PO SCH (21:30)
[2023-07-18] MEDS: INSULIN (LEVEMIR) 100 UNITS/ML UNITS SQ SCH (21:37)
[2023-07-18] MEDS ORDERED: MELATONIN 5 MG TABLETS PO SCH (22:00)
[2023-07-18] MEDS ORDERED: QUEtiapine FUMARATE 100 MG TABLET (FP) PO SCH (22:00)
[2023-07-18] MEDS ORDERED: traZODone HCL 50 MG TABLET (FP) PO SCH (22:00)
[2023-07-19] MEDS: PRENATAL VITAMINS W/ FOLIC ACID TABLET (FP) PO SCH (10:11)
[2023-07-19 12:00] LABS: HEMATOCRIT 42.5 % (32.4-45.2); HEMOGLOBIN 13.8 GM/dL (10.7-15.3); MCH 27.9 pg (25.7-33.7); MCHC 32.6 g/dl (32.0-36.0); MEAN CELL VOLUME 85.6 fl (80-96); MEAN PLT VOLUME 9.3 fl (7.5-11.1); PLATELET COUNT 400 10^3/uL (134-434); RBC 4.96 M/mm3 (3.60-5.2); WHITE BLOOD COUNT 8.1 K/mm3 (4.0-10.0)
[2023-07-19 12:03] LABS: CHLORIDE 103 mmol/L (98-107); SODIUM 141 mmol/L (136-145)
[2023-07-19 12:05] LABS: CALCIUM 8.5 mg/dL (8.5-10.1); GLUCOSE,RANDOM 90 mg/dL (74-106)
[2023-07-19 12:06] LABS: ANION GAP 8 mmol/L (4-13); BLOOD UREA NITROGEN 23.1 mg/dL (7-18); CO2 29 mmol/L (21-32)
[2023-07-19 12:09] LABS: SGOT/AST 43 U/L (15-37)
[2023-07-19 12:10] LABS: BILIRUBIN,TOTAL 0.2 mg/dL (0.2-1)
[2023-07-19 12:11] LABS: ALK PHOS 119 U/L (45-117); SGPT/ALT 59 U/L (13-61); TOT PROT 5.8 g/dl (6.4-8.2)
[2023-07-19 12:12] LABS: CREATININE 0.9 mg/dL (0.55-1.3)
[2023-07-19 13:09] LABS: SYPHILIS W/ RPR CONF REACTIVE (NONREACTIVE)
[2023-07-21 20:34] LABS: EPI CELLS >36 /uL (0-25.1); HYALINE CASTS 9 /uL (0-3.1); URINE APPEARANCE CLEAR; URINE BACTERIA 82 /uL (0-1359); URINE BILIRUBIN NEGATIVE (NEGATIVE); URINE COLOR DK YELLOW; URINE GLUCOSE (UA) NEGATIVE (NEGATIVE); URINE KETONE 1+ (NEGATIVE); URINE LEUK ESTERASE NEGATIVE (NEGATIVE); URINE NITRITE NEGATIVE (NEGATIVE); URINE PROTEIN 4+ (NEGATIVE)
[2023-07-21 21:06] LABS: URINE RBC 84.1 /uL (0-23.9); URINE WBC 125.3 /uL (0-25.8)
[2023-07-22] MEDS: ESCITALOPRAM OXALATE 10 MG TABLET PO SCH (12:20)
[2023-07-26] MEDS: QUEtiapine FUMARATE 50 MG TABLET PO SCH (21:13)
[2023-07-27 12:27] LABS: INR 0.93 (0.83-1.09); PROTHROMBIN TIME (PATIENT) 10.7 SEC (9.7-13.0)
[2023-07-27] MEDS: LIDOCAINE 4% PATCH TP SCH (15:30)
[2023-07-27] MEDS: LACTULOSE 20 GM/30 ML UDC (FOR ORAL USE ONLY) PO SCH (17:54)
[2023-07-27] MEDS: LIDOCAINE PATCH REMOVAL MC SCH (21:42)
[2023-07-28] MEDS: MAGNESIUM OXIDE 400 MG TABLET (FP) PO SCH (09:49)
[2023-07-28] MEDS: CHOLECALCIFEROL (VIT D3) 400 UNIT (10 MCG) TABLET PO SCH (09:49)
[2023-07-28] MEDS: NALTREXONE HCL 50 MG TABLET PO ONE (09:51)
[2023-07-29] MEDS: NALTREXONE HCL 50 MG TABLET PO SCH (10:44)
[2023-07-30] MEDS: FLUCONAZOLE 50 MG TABLET PO ONE (11:47)
[2023-07-31] MEDS ORDERED: ONDANSETRON *ODT* 4 MG TABLET SL PRN (07:28)
[2023-07-31] MEDS: ONDANSETRON *ODT* 4 MG TABLET SL PRN ×2 (07:48→11:47)
[2023-07-31] MEDS ORDERED: TRIMETHOBENZAMIDE HCL 200MG/2ML INJ IM PRN (11:19)
[2023-07-31] MEDS: ACETAMINOPHEN 325 MG TABLET (FP) PO PRN (13:27)
[2023-07-31] MEDS: cloNIDine HCL 0.1 MG TABLET PO ONE (13:27)
[2023-07-31] MEDS ORDERED: amLODIPine BESYLATE 2.5 MG TABLET (FP) PO SCH (13:30)
[2023-07-31] MEDS: amLODIPine BESYLATE 5 MG TABLET (FP) PO SCH (13:34)
[2023-08-01] MEDS: QUEtiapine FUMARATE 50 MG TABLET PO ONE (00:56)
[2023-08-01] MEDS: METHOCARBAMOL 500 MG TABLET PO PRN (21:23)
[2023-08-04] MEDS: metFORMIN HCL 500 MG TABLET (FP) PO SCH (16:40)
[2023-08-04] MEDS ORDERED: INSULIN (NOVOLOG) ASPART 100 UNITS/ML 10ML VIAL ONE (16:58)
[2023-08-04] MEDS: INSULIN ASPART SLIDING SCALE (NOVOLOG) 1 VIAL SQ SCH (17:00)
[2023-08-05] MEDS ORDERED: INSULIN (NOVOLOG) ASPART 100 UNITS/ML 10ML VIAL ONE (16:42)
[2023-08-06] MEDS ORDERED: INSULIN (NOVOLOG) ASPART 100 UNITS/ML 10ML VIAL ONE ×2 (06:23→16:31)
[2023-08-06] MEDS: amLODIPine BESYLATE 2.5 MG TABLET (FP) PO ONE (10:40)
[2023-08-07] MEDS ORDERED: INSULIN (NOVOLOG) ASPART 100 UNITS/ML 10ML VIAL ONE ×2 (06:30→16:36)
[2023-08-07] MEDS: amLODIPine BESYLATE 5 MG TABLET (FP) PO SCH (09:54)
[2023-08-08] MEDS ORDERED: INSULIN (NOVOLOG) ASPART 100 UNITS/ML 10ML VIAL ONE ×2 (05:56→17:10)
[2023-08-08] MEDS ORDERED: QUEtiapine FUMARATE 25 MG TABLET ONE (21:10)
[2023-08-09 09:06] LABS: POTASSIUM 5.1 mmol/L (3.5-5.1)
[2023-08-09 09:12] LABS: BLOOD UREA NITROGEN 27.9 mg/dL (7-18); CALCIUM 8.7 mg/dL (8.5-10.1)
[2023-08-09 09:16] LABS: CREATININE 0.7 mg/dL (0.55-1.3)
[2023-08-09 09:17] LABS: BILIRUBIN,TOTAL 0.2 mg/dL (0.2-1); TOT PROT 5.2 g/dl (6.4-8.2)
[2023-08-09] MEDS: AMLODIPINE BESYLATE 5 MG, AMLODIPINE BESYLATE 2.5 MG PO SCH (10:00)
[2023-08-09] MEDS ORDERED: amLODIPine BESYLATE 5 MG TABLET (FP) PO SCH (10:00)
[2023-08-09] MEDS ORDERED: INSULIN (NOVOLOG) ASPART 100 UNITS/ML 10ML VIAL ONE (16:25)
[2023-08-09] MEDS: traZODone HCL 100 MG TABLET (FP) PO SCH (21:15)
[2023-08-10] MEDS ORDERED: INSULIN (NOVOLOG) ASPART 100 UNITS/ML 10ML VIAL ONE (06:15)
[2023-08-11] MEDS ORDERED: INSULIN (NOVOLOG) ASPART 100 UNITS/ML 10ML VIAL ONE ×3 (06:37→17:25)
[2023-08-11] MEDS: FLUCONAZOLE 150 MG TABLET PO ONE (16:20)
[2023-08-11] MEDS: RIFAXIMIN 550 MG TABLET PO SCH (21:17)
[2023-08-12] MEDS ORDERED: INSULIN (NOVOLOG) ASPART 100 UNITS/ML 10ML VIAL ONE ×2 (06:16→16:36)
[2023-08-12] MEDS: amLODIPine BESYLATE 5 MG TABLET (FP) PO SCH (09:48)
[2023-08-13] MEDS: IBUPROFEN 600 MG TABLET (FP) PO PRN (14:23)
[2023-08-15 06:51] VITALS: RESP 18
[2023-08-15] MEDS ORDERED: INSULIN (NOVOLOG) ASPART 100 UNITS/ML 10ML VIAL ONE (06:53)
[2023-08-16] MEDS ORDERED: INSULIN (NOVOLOG) ASPART 100 UNITS/ML 10ML VIAL ONE (05:55)
[2023-08-16 06:54] VITALS: TEMP 97.2
[2023-08-16 09:17] VITALS: BP 139/70; PULSE 112
== END 2023-08-16 10:00 | disposition home or self-care (01) | DRG 772 ==
LOC: YASAS 13:14 → Y3NR 13:16 → Y5N 07-22 12:17
PROVIDERS: ADMIT Allergy & Immunology; ATTEND Psychiatry & Neurology Pain Medicine
PROC: HZ42ZZZ Group Counseling for Substance Abuse Treatment, Cognitive-Behavioral (ICD-10-PCS; principal; 2023-07-18)
DX: F10.20 Alcohol dependence, uncomplicated (principal); F14.20 Cocaine dependence, uncomplicated; F12.20 Cannabis dependence, uncomplicated; F17.210 Nicotine dependence, cigarettes, uncomplicated; F25.1 Schizoaffective disorder, depressive type; F31.9 Bipolar disorder, unspecified; F43.10 Post-traumatic stress disorder, unspecified; E72.20 Disorder of urea cycle metabolism, unspecified; E83.42 Hypomagnesemia; E55.9 Vitamin D deficiency, unspecified; E10.9 Type 1 diabetes mellitus without complications; Z79.4 Long term (current) use of insulin; Z79.84 Long term (current) use of oral hypoglycemic drugs; B37.32 Chronic candidiasis of vulva and vagina; R10.13 Epigastric pain; R11.2 Nausea with vomiting, unspecified
CPT/HCPCS: 36415; 80053; 80307; 81003; 82140; 82306; 82962; 83735; 85027; 85610; 86593; 86780; 86803; 87522; 87811; Q0162

== ENCOUNTER 2023-07-31 19:02 | Emergency (ER) | payer OTHER ==
[2023-07-31 19:42] VITALS: BP 187/85; PULSE 93; RESP 18; TEMP 98.1; BMI 20.3
[2023-07-31] MEDS ORDERED: ACETAMINOPHEN INJECTION 100 ML IVPB ONE (19:51)
[2023-07-31] MEDS ORDERED: ONDANSETRON 4 MG/2 ML VIAL ONE (19:52)
[2023-07-31] MEDS ORDERED: FAMOTIDINE 20 MG/50 ML IVPB 20 MG/50 ML MG IVPB ONE (19:52)
[2023-07-31 20:15] LABS: BASO % 0.3 % (0-2.0); HEMATOCRIT 38.8 % (32.4-45.2); HEMOGLOBIN 12.5 GM/dL (10.7-15.3); LYMPH % 5.1 % (8-40); MCH 27.5 pg (25.7-33.7); MCHC 32.2 g/dl (32.0-36.0); MEAN CELL VOLUME 85.4 fl (80-96); MEAN PLT VOLUME 8.2 fl (7.5-11.1); MONO % 2.7 % (3.8-10.2); NEUT % 91.9 % (42.8-82.8); PLATELET COUNT 396 10^3/uL (134-434); RBC 4.54 M/mm3 (3.60-5.2); RDW 16.7 % (11.6-15.6); WHITE BLOOD COUNT 10.1 K/mm3 (4.0-10.0)
[2023-07-31] MEDS: ONDANSETRON 4 MG/2 ML VIAL IVPUSH ONE (20:15)
[2023-07-31] MEDS: SODIUM CHLORIDE 0.9% 500 ML INFUS.BAG IV ONE (20:15)
[2023-07-31] MEDS: ACETAMINOPHEN 1000 MG/100 ML BAG IVPB ONE (20:15)
[2023-07-31] MEDS: FAMOTIDINE 20 MG/50 ML IVPB 20 MG/50 ML MG IVPB ONE (20:26)
[2023-07-31 20:34] LABS: POTASSIUM 4.4 mmol/L (3.5-5.1)
[2023-07-31 20:36] LABS: ALBUMIN 2.3 g/dl (3.4-5.0); BLOOD UREA NITROGEN 26.9 mg/dL (7-18); CALCIUM 8.6 mg/dL (8.5-10.1); MAGNESIUM 1.5 mg/dL (1.8-2.4)
[2023-07-31 20:39] LABS: CREATININE 0.7 mg/dL (0.55-1.3)
[2023-07-31 20:41] LABS: BILIRUBIN,TOTAL 0.2 mg/dL (0.2-1); TOT PROT 6.1 g/dl (6.4-8.2)
[2023-07-31 21:06] LABS: ANISOCYTOSIS 1+; MACROCYTOSIS 0; OVALOCYTE 1+; TARGET CELLS 1+
[2023-07-31 21:17] LABS: BILIRUBIN,DIRECT 0.1 mg/dL (0.0-0.2)
[2023-07-31] MEDS ORDERED: SIMETHICONE 80 MG TAB.CHEW (FP) ONE (22:14)
[2023-07-31] MEDS ORDERED: MAGNESIUM SULFATE IN WATER 2 GM/50 ML IVPB IVPB ONE (22:15)
[2023-07-31] MEDS ORDERED: MAG HYDROX/AL HYDROX/SIMETH 30 ML UNIT-DOSE CUP ONE (22:15)
[2023-07-31] MEDS: MAG HYDROX/AL HYDROX/SIMETH 30 ML UNIT-DOSE CUP PO ONE (22:21)
[2023-07-31] MEDS: SIMETHICONE 80 MG TAB.CHEW (FP) PO ONE (22:21)
[2023-07-31] MEDS: MAGNESIUM SULFATE IN WATER 2 GM/50 ML IVPB IVPB ONE (22:21)
== END 2023-07-31 23:27 | disposition home or self-care (01) ==
LOC: JER 19:02
PROC: 3E033GC Introduction of Other Therapeutic Substance into Peripheral Vein, Percutaneous Approach (ICD-10-PCS; principal; 2023-07-31)
PROC: 3E033GC Introduction of Other Therapeutic Substance into Peripheral Vein, Percutaneous Approach (ICD-10-PCS; 2023-07-31)
PROC: 3E033GC Introduction of Other Therapeutic Substance into Peripheral Vein, Percutaneous Approach (ICD-10-PCS; 2023-07-31)
DX: K29.70 Gastritis, unspecified, without bleeding (principal); R10.13 Epigastric pain; R11.2 Nausea with vomiting, unspecified; R19.7 Diarrhea, unspecified; Z20.822 Contact with and (suspected) exposure to COVID-19
CPT/HCPCS: 0241U-QW; 36415; 80053; 82248; 83690; 83735; 84484; 85025; 93005; 93010; 99284-25; J0131